=== PATIENT | male | born 1965 | race Caucasian/White ===

== ENCOUNTER 2022-03-15 09:48 | Emergency (ER) | payer BC, SELFPAY ==
[2022-03-15] VITALS (33 sets, daily range): BP systolic 93–160; BP diastolic 62–113; PULSE 51–84; RESP 10–22; TEMP 37.3; O2SAT 90–100
--- NOTE | ~2022-03-15 | CT_ITS ---
EXAMINATION: CT abdomen pelvis w con DATE: 03/15/2022 11:56 INDICATION: Abdominal pain TECHNIQUE: Computed tomography (CT) of the abdomen and pelvis was performed with 100 mL Omnipaque-350 intravenous contrast. Automated exposure control and iterative reconstruction technique were employe d. The dose-length product was 741.87 mGy-cm. COMPARISON: None FINDINGS: Mild emphysema in the lower lung zones. Bronchiectasis with mild dilation of a central bronchi and th e bilateral lower lobes with more diffuse mild bronchial wall thickening in the visualized lingula, r ight middle and bilateral lower lobes. There is likely mucous plugging the bronchus in the posterior basilar segment of the left lower lobe. Small region of mild tree-in-bud opacity in the right lower l obe consistent with age-indeterminate endobronchial spread of disease most likely infectious or infla mmatory in etiology. There is also a tiny calcified nodule in the right lower lobe consistent with ol d granulomatous disease. Heart size is normal. No pericardial or pleural effusion. Small sliding-type hiatal hernia. Mild wall thickening at the distal esophagus which could be seen with esophagitis. Dietz ggestion of some subtle liver surface nodularity raising some suspicion for but not definitive for ci rrhosis. Gallbladder, spleen, pancreas, bilateral adrenal glands and kidneys are normal. There is mod erate colonic diverticulosis with a sigmoid predominance. There is no adjacent inflammatory change t o suggest diverticulitis. There is diffuse fatty infiltration of the colonic wall relatively sparing the sigmoid colon along with a few loops of small bowel including the terminal ileum. Normal appendix . No bowel obstruction. Mild prostatomegaly. Bladder is normal. No free intraperitoneal gas or fluid. No pathologically enlarged abdominal or pelvic lymphadenopathy. Mild increased fat in the bilateral inguinal canals which could be related to body habitus or small inguinal hernias. Chronic mild anteri or wedging of L1 and few lower thoracic vertebral bodies. There are also bridging osteophytes at mult iple levels consistent with diffuse idiopathic skeletal hyperostosis (DISH). IMPRESSION: 1. Mild emphysema with bronchiectasis at the bilateral lung bases with mucous plugging in a left lowe r lobar bronchus. 2. Small region of tree-in-bud opacity with a few small centrilobular nodules in the right lower lobe consistent with age-indeterminate endobronchial spread of disease most likely either infectious or i nflammatory in etiology. 3. Mild wall thickening at the distal esophagus which could be due to esophagitis including reflux es ophagitis with small sliding-type hiatal hernia. 4. Moderate diverticulosis. 5. Fatty infiltration of the wall of the colon and several loops of small bowel including the termina l ileum which could be related to body habitus but could also be seen as sequela of chronic inflammat ion. 6. Suggestion of subtle liver surface nodularity suspicious but not definitive for cirrhosis. Reviewed, dictated and finalized at location [facility]. [facility] [employer] [employer] IMPRESSION: 1. Mild emphysema with bronchiectasis at the bilateral lung bases with mucous p lugging in a left lower lobar bronchus. 2. Small region of tree-in-bud opacity with a few small centrilobular nodules i n the right lower lobe consistent with age-indeterminate endobronchial spread o f disease most likely either infectious or inflammatory in etiology. 3. Mild wall thickening at the distal esophagus which could be due to esophagit is including reflux esophagitis with small sliding-type hiatal hernia. 4. Moderate diverticulosis. 5. Fatty infiltration of the wall of the colon and several loops of small bowel including the terminal ileum which could be related to body habi
[2022-03-15 11:02] LABS: Basophils Absolute Auto 0.1 K/mm3 (0.0-0.1); Basophils Percent Auto 0.8 % (0.2-1.2); Eosinophils Absolute Auto 0.3 K/mm3 (0-0.3); Eosinophils Percent Auto 2.7 % (0-4.4); Hematocrit 47.5 % (42.0-52.0); Hemoglobin 16.4 g/dL (14.0-18.0); Immature Granulocyte Absolute 0.09 K/mm3 (0.00-0.031); Immature Granulocyte Percent A 0.9 % (0-0.5); Lymphocytes Percent Auto 27.2 % (18.3-44.2); Mean Corpuscular HGB Conc 34.5 g/dl (32-36); Mean Corpuscular Hemoglobin 33.8 pg (26-34); Mean Corpuscular Volume 97.9 fl (80-100); Mean Platelet Volume 9.5 fl (7.4-10.4); Monocytes Absolute Auto 0.7 K/mm3 (0.1-0.6); Monocytes Percent Auto 7.2 % (2.6-8.5); Neutrophils Absolute Auto 6.1 K/mm3 (1.3-6.7); Neutrophils Percent Auto 61.2 % (45.5-73.1); Platelet Count Result 214 k/mm3 (150-375); Red Blood Count 4.85 M/mm3 (4.6-6.20); Red Cell Distribution Width 13.2 % (11.5-14.5); White Blood Count 9.9 K/mm3 (4.5-10.0)
[2022-03-15 11:14] LABS: Alanine Aminotransferase 21 U/L (6-50); Albumin Level 4.4 g/dL (3.5-5.1); Alkaline Phosphatase 67 U/L (38-126); Anion Gap 8 mmol/L (8-16); Aspartate Amino Transferase 24 U/L (17-59); Bilirubin,Total 0.7 mg/dL (0.2-1.3); Blood Urea Nitrogen 10 mg/dL (9-20); Calcium 8.7 mg/dL (8.4-10.2); Carbon Dioxide 33 mmol/L (22-30); Chloride 104 mmol/L (98-107); Estimated CRCL calculation 92 ml/min; Estimated Glomerular Filt Rate > 60; Glucose 100 mg/dL (65-110); Lipase 61 U/L (23-300); Sodium 145 mmol/L (137-145)
--- NOTE | 2022-03-15 11:27 | ED.GENADULT ---
HPI - General Adult General Chief complaint: Abdominal Pain Stated complaint: abd pain Time Seen by Provider: 03/15/22 11:20 Source: RN notes reviewed History of Present Illness HPI narrative: Patient presents emergency room from home for abdominal pain. Patient states he has been having ongoing issues with abdominal pain for the past year and a half this episode of abdominal pain became more severe today pain is located diffusely throughout the abdomen is described as aching and cramping in nature's been associated with diarrhea. He does note some mild nausea as well but denies any vomiting he denies any fevers or chills chest pain or shortness of breath states he has never had an official full work-up for his abdominal pain but has been told before in the past he has inflamed intestines Related Data Home Medications Medication Instructions Recorded Confirmed omeprazole 40 mg capsule,delayed 40 mg PO DAILY 07/13/21 07/13/21 release Allergies Allergy/AdvReac Type Severity Reaction Status Date / Time No Known Allergies Allergy Verified 03/15/22 13:24 Review of Systems Review of Systems: Gen.: Denies fevers or chills ENT: Denies congestion Respiratory: Denies shortness of breath or cough CV: Denies chest pain or shortness of breath GI: See HPI Musculoskeletal: Denies back pain or muscle pain Neuro: Denies numbness, tingling, weakness or focal weakness Skin: Denies rash Except as documented, all other systems reviewed and negative PMFSH Past Medical History Medical History Abdominal pain Acute non-recurrent maxillary sinusitis BMI 28.0-28.9,adult Colon cancer screening normal colonoscopy with Dr. Curiel on 03/11/2021 Encounter to establish care Gastro-esophageal reflux disease without esophagitis EGD with Dr. Curiel on 03/11/2021 with benign duodenal polyp and minimal chronic duodenitis GERD (gastroesophageal reflux disease) Lumbago with sciatica Lump in mouth Prostate cancer screening Tobacco abuse Social History Social History Smoking packs per day: 0.5 Smoking cigarettes per day: 10.0 Years smoked: 30 Smoking pack-years: 15.00 Smoking status: Current every day smoker Tobacco type: cigarettes Alcohol intake: current Substance use: current Substance use type: marijuana Exam Narrative: APPEARANCE: No acute distress, nontoxic, resting in bed HEENT: Normocephalic, atraumatic, OMM RESPIRATORY: No respiratory distress, clear to auscultation bilaterally with no rhonchi wheezing or rales CARDIOVASCULAR: RRR s murmur ABDOMINAL: Soft nondistended diffusely tender to palpation no rebound or guarding MUSCULOSKELETAl: Moves all extremities. No clubbing, cyanosis or edema. NEURO: Awake and alert. Following commands, speech normal, no focal deficits SKIN:: Warm, dry. Normal Color PSYCHIATRIC: Normal affect/mood Course Course Emergency Course: Patient states abdomen is feeling much better states he is ready to eat I discussed with the patient his CT results he denies having any coughing or fevers Patient states that they are feeling much better at this time. States abdominal pain has resolved. Repeat abdominal exam shows the patient's abdomen to be soft and nontender. Discussed with patient results of workup and diagnosis. Discussed need for follow-up with primary care physician, reasons to return to the emergency department in proper use of medication. Patient understands and agrees to current treatment plan Vital Signs Vital signs: Vital Signs Temperature 99.1 F 03/15/22 10:01 Pulse Rate 76 03/15/22 10:01 Respiratory Rate 20 03/15/22 10:01 Blood Pressure 160/104 H 03/15/22 10:01 Pulse Oximetry 97 03/15/22 10:01 Oxygen Delivery Room Air 03/15/22 10:01 Temperature 99.1 F 03/15/22 10:01 Pulse Rate 73 03/15/22 13:24 Respiratory Rate 20 03/15/22 13:24
[2022-03-15] MEDS: SODIUM CHLORIDE 0.9% IV 1,000 ML 999 ML IV CONT (11:37)
[2022-03-15] MEDS: ONDANSETRON INJ 4 MG/2 ML VIAL IV PUSH (11:37)
[2022-03-15] MEDS: MORPHINE SULFATE (*CRX) 4 MG/ML INJ IV PUSH (11:37)
[2022-03-15 11:49] LABS: Appearance Urine Clear (Clear); Bilirubin Urine Negative (Negative); Blood Urine Negative (Negative); Color Urine Yellow (Yellow); Glucose Urine UA Negative (Negative); Ketones Urine Negative (Negative); Leukocyte Esterase Ur Negative LEU/UL (Negative); Nitrate Urine Negative (Negative); Protein Urine Trace mg/dL (Negative); Specific Grav Ur 1.025 (1.001-1.035); Urobilinogen Urine 0.2 mg/dL (<2.0); pH Urine 5.5 (5.0-9.0)
[2022-03-15 12:55] LABS: Add Urine Microscopic? NO
[2022-03-15] MEDS: ALBUTEROL SULFATE NEB 2.5 MG/3 ML INH 5 MG INHALATION (13:01)
[2022-03-15] MEDS: IPRATROPIUM BR 0.02% INH SOLN 0.5 MG/2.5 ML VIAL INHALATION (13:02)
== END 2022-03-15 15:39 | disposition home or self-care (01) ==
PROVIDERS: Emergency Provider Emergency Medicine; PCP Nurse Practitioner Family
DX: J18.9 Pneumonia, unspecified organism (principal); R10.84 Generalized abdominal pain; K21.9 Gastro-esophageal reflux disease without esophagitis; F17.210 Nicotine dependence, cigarettes, uncomplicated; J43.9 Emphysema, unspecified; R91.8 Other nonspecific abnormal finding of lung field; R93.3 Abnormal findings on diagnostic imaging of other parts of digestive tract; K57.90 Diverticulosis of intestine, part unspecified, without perforation or abscess without bleeding; R93.2 Abnormal findings on diagnostic imaging of liver and biliary tract
CPT/HCPCS: 36415; 74177; 80053; 81003; 83690; 85025; 94640; 96361; 96374; 96375; 99284; J2270; J2405; J7030; Q9967

== ENCOUNTER 2022-05-15 09:37 | Emergency (ER) | payer BC, SELFPAY ==
[2022-05-15 09:52] VITALS: BP 123/71; PULSE 59; RESP 18; TEMP 36.3; O2SAT 97
--- NOTE | 2022-05-15 10:13 | ED.URI ---
HPI - URI/Sore Throat General Chief Complaint: Upper Respiratory Infection Stated Complaint: nasal drainage Time Seen by Provider: 05/15/22 10:14 Source: patient and RN notes reviewed Mode of arrival: ambulatory Limitations: no limitations History of Present Illness HPI Narrative: 56-year-old male presented for complaint of cough and sinus congestion over the last 2 weeks. Reports sinus pressure and ear pressure with 'hearing noises' when turning head. He endorses white, yellow or green sputum production. Endorses sob occasionally with exertion. He denies cp, palpitations, wheezing, lethargy, dizziness, nausea, vomiting, diarrhea, fevers or chills. Takes Flonase and zyrtec. Denies sick contacts. He quit smoking 05/02/2022, up to 2 ppd x40 years. MD elicited complaint: cough Related Data Home Medications Medication Instructions Recorded Confirmed citalopram 20 mg tablet 20 mg PO HS 05/15/22 05/15/22 ergocalciferol (vitamin D2) 1,250 50,000 unit PO WEEKLY 05/15/22 05/15/22 mcg (50,000 unit) capsule hyoscyamine sulfate 0.375 mg 0.375 mg PO DAILY 05/15/22 05/15/22 tablet,extended release,12 hr magnesium oxide 400 mg PO DAILY 05/15/22 05/15/22 omeprazole 40 mg capsule,delayed 40 mg PO DAILY 05/15/22 05/15/22 release varenicline 0.5 mg tablet 0.5 mg PO DAILY 05/15/22 05/15/22 Allergies Allergy/AdvReac Type Severity Reaction Status Date / Time No Known Allergies Allergy Verified 05/15/22 09:48 Review of Systems Review of Systems: Per HPI [facility] Past Medical History Medical History Abdominal pain Acute non-recurrent maxillary sinusitis BMI 28.0-28.9,adult Colon cancer screening normal colonoscopy with Dr. Curiel on 03/11/2021 Encounter to establish care Gastro-esophageal reflux disease without esophagitis EGD with Dr. Curiel on 03/11/2021 with benign duodenal polyp and minimal chronic duodenitis GERD (gastroesophageal reflux disease) Lumbago with sciatica Lump in mouth Prostate cancer screening Tobacco abuse Social History Social History Smoking packs per day: 0.5 Smoking cigarettes per day: 10.0 Years smoked: 30 Smoking pack-years: 15.00 Smoking status: Current every day smoker Tobacco type: cigarettes Alcohol intake: current Substance use: current Substance use type: marijuana Exam Narrative: GENERAL: mildly Ill-appearing, nontoxic EYES: PERRLA, conjunctivae clear ENT: Mucous membranes moist. TM pearly camilo with dull light reflex bilaterally; no tragal tenderness. Oropharynx without lesions or exudate, CHEST: lungs diminished with faint scattered wheezing throughout. No respiratory distress, speaks in full sentences. HEART: Regular rate and rhythm. No murmur heard. SKIN: Warm, dry, no rash. NEURO: Alert and oriented x3. PSYCH: Normal mood and affect Course Course Emergency Course: Patient is aware of diagnosis, understands and agrees to treatment plan. Anticipatory guidance given. Patient agrees to follow-up as directed and is aware of reasons to seek care at the emergency department. Portions of this record may have been created with voice recognition software Level of Care: Express Care Visit Vital Signs Vital signs: Vital Signs Temperature 97.3 F L 05/15/22 09:52 Pulse Rate 59 L 05/15/22 09:52 Respiratory Rate 18 05/15/22 09:52 Blood Pressure 123/71 05/15/22 09:52 Pulse Oximetry 97 05/15/22 09:52 Oxygen Delivery Room Air 05/15/22 09:52 Temperature 97.3 F L 05/15/22 09:52 Pulse Rate 59 L 05/15/22 09:52 Respiratory Rate 18 05/15/22 09:52 Blood Pressure 123/71 05/15/22 09:52 Pulse Oximetry 97 05/15/22 09:52 Oxygen Delivery Room Air 05/15/22 09:52 reviewed MDM - URI/Sore Throat MDM Narrative Medical decision making narrative: Advised supportive measures and signs/symptoms to go to the ER. Pt is ap
== END 2022-05-15 10:25 | disposition home or self-care (01) ==
PROVIDERS: Emergency Provider Nurse Practitioner Family; PCP Family Medicine
DX: J06.9 Acute upper respiratory infection, unspecified (principal); K21.9 Gastro-esophageal reflux disease without esophagitis; F17.210 Nicotine dependence, cigarettes, uncomplicated
CPT/HCPCS: 99213; G0463

== ENCOUNTER 2022-06-05 08:28 | Emergency (ER) | payer BC, SELFPAY ==
[2022-06-05 08:44] VITALS: BP 128/71; PULSE 72; RESP 18; TEMP 37.2; O2SAT 98
--- NOTE | 2022-06-05 08:46 | ED.GENADULT ---
HPI - General Adult General Chief complaint: Animal Bite Stated complaint: dog bite Time Seen by Provider: 06/05/22 08:46 Source: patient Mode of arrival: ambulatory Limitations: no limitations History of Present Illness HPI narrative: 56-year-old male patient presents to the [facility] with complaints of a dog bite to the left hand. Patient states he was playing with his Great [place] yesterday and was pulling around by his mouth and the dog accidentally bit him on the left-hand in the web between the index and thumb. Patient states that the left hand is his dominant hand. Patient states he is up-to-date on tetanus and just received a tetanus shot about 2 months ago by his primary doctor. Related Data Home Medications Medication Instructions Recorded Confirmed ergocalciferol (vitamin D2) 1,250 50,000 unit PO WEEKLY 05/15/22 05/15/22 mcg (50,000 unit) capsule hyoscyamine sulfate 0.375 mg 0.375 mg PO DAILY 05/15/22 05/15/22 tablet,extended release,12 hr magnesium oxide 400 mg PO DAILY 05/15/22 05/15/22 omeprazole 40 mg capsule,delayed 40 mg PO DAILY 05/15/22 05/15/22 release varenicline 0.5 mg tablet 0.5 mg PO DAILY 05/15/22 05/15/22 Allergies Allergy/AdvReac Type Severity Reaction Status Date / Time No Known Allergies Allergy Verified 05/15/22 09:48 Review of Systems Review of Systems: CONSTITUTIONAL: Denies fever, chills, or sweats. EYES: Denies visual changes, redness, or discharge. ENT: Denies rhinorrhea, congestion, sore throat, or otalgia. CARDIOVASCULAR: Denies chest pain, palpitations, or edema. RESPIRATORY: Denies cough or dyspnea. GASTROINTESTINAL: Denies abdominal pain, nausea, vomiting, or diarrhea. GENITOURINARY: Denies dysuria or hematuria. SKIN: Denies rash or itching. Positive dog bite to left hand MUSCULOSKELETAL: Denies back pain, joint pain, or myalgia. NEUROLOGIC: Denies headache, numbness, or weakness. PSYCHIATRIC: Denies anxiety or depression. [facility] Past Medical History Medical History Abdominal pain Acute non-recurrent maxillary sinusitis BMI 28.0-28.9,adult Colon cancer screening normal colonoscopy with Dr. Curiel on 03/11/2021 Encounter to establish care Gastro-esophageal reflux disease without esophagitis EGD with Dr. Curiel on 03/11/2021 with benign duodenal polyp and minimal chronic duodenitis GERD (gastroesophageal reflux disease) Lumbago with sciatica Lump in mouth Prostate cancer screening Tobacco abuse Social History Social History Smoking packs per day: 0.5 Smoking cigarettes per day: 10.0 Years smoked: 30 Smoking pack-years: 15.00 Smoking status: Current every day smoker Tobacco type: cigarettes Alcohol intake: current Substance use: current Substance use type: marijuana Exam Narrative: GENERAL: Well-appearing, well-nourished, and in no acute distress. HEAD: Normocephalic, atraumatic. EYES: PERRLA and EOMI. ENT: Nares clear, no rhinorrhea or epistaxis. Mucous membranes moist. NECK: Supple. No lymphadenopathy CHEST: Clear to auscultation. No respiratory distress. HEART: Regular rate and rhythm. No murmur heard. Normal peripheral pulses. ABDOMEN: Soft, nontender, nondistended, normal active bowel sounds. EXTREMITIES: Normal range of motion. No edema. SKIN: Warm, dry, no rash. patient has approximately 2 cm circular open wound to the web between left thumb and left index finger. No active bleeding noted. NEURO: No focal deficits. Alert and oriented x3. Course Course Level of Care: Express Care Visit Vital Signs Vital signs: Vital Signs Temperature 37.2 C 06/05/22 08:44 Pulse Rate 72 06/05/22 08:44 Respiratory Rate 18 06/05/22 08:44 Blood Pressure 128/71 06/05/22 08:44 Pulse Oximetry 98 06/05/22 08:44 Oxygen Delivery Room Air 06/05/22 08:44 Temperature 37.2 C 06/05/22 08:44 Pulse Rate 72 02
== END 2022-06-05 09:18 | disposition home or self-care (01) ==
PROVIDERS: Emergency Provider Nurse Practitioner Family; PCP Family Medicine
DX: S61.452A Open bite of left hand, initial encounter (principal); F17.210 Nicotine dependence, cigarettes, uncomplicated; W54.0XXA Bitten by dog, initial encounter
CPT/HCPCS: 99213; G0463

== ENCOUNTER 2023-02-19 08:56 | Emergency (ER) | payer BC, SELFPAY ==
[2023-02-19 09:04] VITALS: BP 135/100; PULSE 88; RESP 20; TEMP 36.6; O2SAT 98
--- NOTE | 2023-02-19 09:04 | ED.URI ---
HPI - URI/Sore Throat General Chief Complaint: Upper Respiratory Infection Stated Complaint: Cough,Congestion,Rash Time Seen by Provider: 02/19/23 09:05 Source: patient Mode of arrival: ambulatory Limitations: no limitations History of Present Illness HPI Narrative: 57 year old male presented for complaint of sinus congestion and drainage, cough, onset 4 days. He endorses a red itchy rash this morning. Rash is on the mid torso, low abd/back, and biceps. Denies lip, tongue, or throat swelling, shortness of breath or wheezing. Denies changes to soap, detergent, lotion, or any other exposures. No one else in the house or any contacts with similar symptoms. Not taking anything for symptoms. Denies sick contacts. Smokes 1ppd. Related Data Home Medications Medication Instructions Recorded Confirmed ergocalciferol (vitamin D2) 1,250 50,000 unit PO WEEKLY 05/15/22 02/19/23 mcg (50,000 unit) capsule hyoscyamine sulfate 0.375 mg 0.375 mg PO DAILY 05/15/22 02/19/23 tablet,extended release,12 hr magnesium oxide 400 mg PO DAILY 05/15/22 02/19/23 omeprazole 40 mg capsule,delayed 40 mg PO DAILY 05/15/22 02/19/23 release varenicline 0.5 mg tablet 0.5 mg PO DAILY 05/15/22 02/19/23 Allergies Allergy/AdvReac Type Severity Reaction Status Date / Time No Known Allergies Allergy Verified 02/19/23 09:02 Review of Systems Review of Systems: CONSTITUTIONAL: Denies body aches, fever, chills, or sweats. EYES: Denies visual changes, redness, or discharge. ENT: Reports rhinorrhea, congestion, sore throat, denies otalgia. CARDIOVASCULAR: Denies chest pain, palpitations, or edema. RESPIRATORY: Reports cough, denies sob, wheezing. GASTROINTESTINAL: Denies abdominal pain, nausea, vomiting, or diarrhea. GENITOURINARY: Denies dysuria or hematuria. SKIN: reports rash, itching MUSCULOSKELETAL: Denies back pain, joint pain, or myalgia. NEUROLOGIC: Denies headache, numbness, tingling, or weakness. All systems reviewed & are unremarkable except as noted in HPI and below PMFSH Past Medical History Medical History Abdominal pain Acute non-recurrent maxillary sinusitis BMI 28.0-28.9,adult Colon cancer screening normal colonoscopy with Dr. Curiel on 03/11/2021 Encounter to establish care Gastro-esophageal reflux disease without esophagitis EGD with Dr. Curiel on 03/11/2021 with benign duodenal polyp and minimal chronic duodenitis GERD (gastroesophageal reflux disease) Lumbago with sciatica Lump in mouth Prostate cancer screening Tobacco abuse Social History Social History Smoking packs per day: 0.5 Smoking cigarettes per day: 10.0 Years smoked: 30 Smoking pack-years: 15.00 Smoking status: Current every day smoker Tobacco type: cigarettes Alcohol intake: current Substance use: current Substance use type: marijuana Comments At time of signature, I have reviewed and agree with nursing past medical, surgical, social and family history unless otherwise noted. Please see nursing chart for further information. There is no relevant family history pertinent to the presenting complaint Exam Narrative: GENERAL: Well-appearing, in no acute distress. EYES: EOMI. No redness or drainage. Conjunctivae normal. ENT: Mucous membranes pink and moist. No rhinorrhea. TMs normal bilaterally. Throat normal. Uvula midline. NECK: Normal AROM. Supple. CHEST: No respiratory distress. Faint Wheezing to bases. HEART: Regular rate and rhythm. No murmur appreciated. ABDOMEN: Soft, nontender, nondistended, normal active bowel sounds. EXTREMITIES: Normal range of motion. No edema. SKIN: Warm, dry, no rash. Capillary refill normal. Normal skin turgor. NEURO: Alert and oriented x3. Gait steady. Course Course Emergency Course: Patient is aware of diagnosis, understands and agrees to treatment plan. Anticipatory gu
== END 2023-02-19 09:34 | disposition home or self-care (01) ==
PROVIDERS: Emergency Provider Nurse Practitioner Family
DX: B34.9 Viral infection, unspecified (principal); F17.210 Nicotine dependence, cigarettes, uncomplicated; K21.9 Gastro-esophageal reflux disease without esophagitis
CPT/HCPCS: 87081; 87880; 99213; G0463

== ENCOUNTER 2023-02-24 09:52 | Emergency (ER) | payer BC, SELFPAY ==
--- NOTE | ~2023-02-24 | XR_ITS ---
EXAMINATION: XR chest 2V 02/24/2023 10:15 INDICATION: Anterior wall chest pain PROCEDURE: 2 view chest COMPARISON: No prior studies for comparison. FINDINGS: The lungs are clear. The lungs are hyperinflated which is consistent with, but not diagnost ic of chronic obstructive pulmonary disease. The cardiomediastinal silhouette is within normal limit s. There are no pleural effusions. There is no pneumothorax suspected. IMPRESSION: 1: NO ACUTE CARDIOPULMONARY DISEASE. Reviewed, dictated and finalized at location L.
--- NOTE | 2023-02-24 09:54 | ECG_ITS ---
Measurements Intervals [place] Rate: 75 P: 64 [place]: 140 QRS: 82 QRSD: 102 T: 74 QT: 379 QTc: 425 Interpretive Statements SINUS RHYTHM NORMAL ELECTROCARDIOGRAM NO PREVIOUS ECG AVAILABLE FOR COMPARISON Electronically Signed On 02-25-2023 7:24:55 CDT by Cy Andino M.D.
[2023-02-24 09:55] VITALS: BP 146/109; PULSE 77; RESP 18; O2SAT 95
[2023-02-24 10:01] VITALS: O2SAT 94
[2023-02-24 10:10] LABS: Basophils Percent Auto 0.4 % (0.2-1.2); Eosinophils Percent Auto 0.2 % (0-4.4); Hematocrit 48.4 % (42.0-52.0); Hemoglobin 16.4 g/dL (14.0-18.0); Immature Granulocyte Absolute 0.08 K/mm3 (0.00-0.031); Immature Granulocyte Percent A 0.8 % (0-0.5); Lymphocytes Absolute Auto 1.74 K/mm3 (0.9-3.2); Lymphocytes Percent Auto 17.2 % (18.3-44.2); Mean Corpuscular HGB Conc 33.9 g/dl (32-36); Mean Corpuscular Hemoglobin 32.7 pg (26-34); Mean Corpuscular Volume 96.4 fl (80-100); Mean Platelet Volume 9.9 fl (7.4-10.4); Monocytes Absolute Auto 0.7 K/mm3 (0.1-0.6); Monocytes Percent Auto 6.5 % (2.6-8.5); Neutrophils Absolute Auto 7.6 K/mm3 (1.3-6.7); Neutrophils Percent Auto 74.9 % (45.5-73.1); Platelet Count Result 256 k/mm3 (150-375); Red Blood Count 5.02 M/mm3 (4.6-6.20); White Blood Count 10.1 K/mm3 (4.5-10.0)
--- NOTE | 2023-02-24 10:12 | ED.CHESTPAIN ---
HPI - Chest Pain General Chief Complaint: Chest Pain <Luanne Alexandra PA-C - Last Filed: 02/24/23 14:07> Stated Complaint: dyspnea <Luanne Alexandra PA-C - Last Filed: 02/24/23 14:07> Time Seen by Provider: 02/24/23 09:56 <Luanne Alexandra PA-C - Last Filed: 02/24/23 14:07> Source: patient <MARIA Coleman Last Filed: 02/24/23 14:07> Mode of arrival: ambulatory <MARIA Coleman Last Filed: 02/24/23 14:07> Limitations: no limitations <MARIA Coleman Last Filed: 02/24/23 14:07> History of Present Illness HPI narrative: This is a 57 year old male that presents to the ER for shortness of breath. Ongoing over the last week. Associated with cough and congestion. Reports he was seen at urgent care and given a Medrol Dosepak. He is taking this without relief. Continues to have shortness of breath and wheezing. He has also been using an inhaler without relief. Reports some pleuritic chest pain. Denies fevers or lower extremity edema. <Luanne Alexandra PA-C - Last Filed: 02/24/23 14:07> Related Data Home Medications: Home Medications Medication Instructions Recorded Confirmed ergocalciferol (vitamin D2) 1,250 50,000 unit PO WEEKLY 05/15/22 02/19/23 mcg (50,000 unit) capsule hyoscyamine sulfate 0.375 mg 0.375 mg PO DAILY 05/15/22 02/19/23 tablet,extended release,12 hr magnesium oxide 400 mg PO DAILY 05/15/22 02/19/23 omeprazole 40 mg capsule,delayed 40 mg PO DAILY 05/15/22 02/19/23 release varenicline 0.5 mg tablet 0.5 mg PO DAILY 05/15/22 02/19/23 <MARIA Coleman Last Filed: 02/24/23 14:07> Allergies/Adverse Reactions: Allergies Allergy/AdvReac Type Severity Reaction Status Date / Time No Known Allergies Allergy Verified 02/19/23 09:02 <Luanne Alexandra PA-C - Last Filed: 02/24/23 14:07> Review of Systems Review of Systems: CONSTITUTIONAL: Denies fever CARDIOVASCULAR: Reports chest pain. Denies edema. RESPIRATORY: Reports cough and dyspnea. <Luanne Alexandra PA-C - Last Filed: 02/24/23 14:07> All systems reviewed & are unremarkable except as noted in HPI and below <Luanne Alexandra PA-C - Last Filed: 02/24/23 14:07> PMFSH Past Medical History Medical History: Medical History Abdominal pain Acute non-recurrent maxillary sinusitis BMI 28.0-28.9,adult Colon cancer screening normal colonoscopy with Dr. Curiel on 03/11/2021 Encounter to establish care Gastro-esophageal reflux disease without esophagitis EGD with Dr. Curiel on 03/11/2021 with benign duodenal polyp and minimal chronic duodenitis GERD (gastroesophageal reflux disease) Lumbago with sciatica Lump in mouth Prostate cancer screening Tobacco abuse <Luanne Alexandra PA-C - Last Filed: 02/24/23 14:07> Social History Social History: Social History Smoking packs per day: 0.5 Smoking cigarettes per day: 10.0 Years smoked: 30 Smoking pack-years: 15.00 Smoking status: Current every day smoker Tobacco type: cigarettes Alcohol intake: current Substance use: current Substance use type: marijuana <Luanne Alexandra PA-C - Last Filed: 02/24/23 14:07> Exam Narrative: GENERAL: Well-appearing, well-nourished, and in no acute distress. HEAD: Normocephalic, atraumatic. EYES: PERRLA and EOMI. ENT: Nares clear, no rhinorrhea or epistaxis. Mucous membranes moist. Oropharynx without tonsillar hypertrophy exudate or other lesions. NECK: Supple. No adenopathy or masses. CHEST: No respiratory distress. Diffuse expiratory wheezing. No rales or rhonchi HEART: Regular rate and rhythm. No murmur heard. Normal peripheral pulses. EXTREMITIES: Normal range of motion. No edema. SKIN: Warm, dry, no rash. NEURO: No focal deficits. Alert and oriented x3. PSYCH: Normal mood and affect <Luanne Alexandra PA-C - Last Filed: 02/24/23
[2023-02-24 10:20] LABS: Alanine Aminotransferase 66 U/L (6-50); Albumin Level 4.6 g/dL (3.5-5.1); Alkaline Phosphatase 70 U/L (38-126); Anion Gap 6 mmol/L (8-16); Aspartate Amino Transferase 41 U/L (17-59); Bilirubin,Total 0.8 mg/dL (0.2-1.3); Blood Urea Nitrogen 16 mg/dL (9-20); Calcium 9.5 mg/dL (8.4-10.2); Carbon Dioxide 32 mmol/L (22-30); Chloride 100 mmol/L (98-107); Estimated CRCL calculation 79 ml/min; Estimated Glomerular Filt Rate > 60; Glucose 100 mg/dL (65-110); Lipase 239 U/L (23-300); Potassium 4.1 mmol/L (3.4-5.0); Sodium 138 mmol/L (137-145)
[2023-02-24 10:23] LABS: INR 0.9; Partial Thromboplastin Time 25.1 SECONDS (22.3-36.8); Prothrombin Time 12.5 Seconds (11.1-14.7)
[2023-02-24 10:31] LABS: Troponin I < 0.012 ng/mL (0.000-0.034)
[2023-02-24 10:34] VITALS: PULSE 67; RESP 17
[2023-02-24] MEDS: IPRATROPIUM BR 0.02% INH SOLN 0.5 MG/2.5 ML VIAL INHALATION (10:34)
[2023-02-24] MEDS: ALBUTEROL SULFATE NEB 2.5 MG/3 ML INH INHALATION (10:34)
[2023-02-24 10:47] VITALS: PULSE 66; RESP 17
[2023-02-24] MEDS: KETOROLAC 15 MG/ML VIAL (*BKC) IV PUSH (11:11)
[2023-02-24] MEDS: methylPREDNISolone SOD SUCC 125 MG VIAL IV PUSH (11:11)
[2023-02-24 11:21] LABS: NT Pro B Type Natriuretic Pept 132 pg/mL (19.9-100)
[2023-02-24 11:24] LABS: Influenza A QL RT-PCR Negative (Negative); Influenza B QL RT-PCR Negative (Negative); SARS-CoV-2 RNA PCR Negative (Negative)
[2023-02-24 12:06] VITALS: PULSE 62; RESP 18
[2023-02-24] MEDS: ALBUTEROL SULFATE NEB 2.5 MG/3 ML INH 15 MG INHALATION (12:06)
[2023-02-24] MEDS: IPRATROPIUM BR 0.02% INH SOLN 0.5 MG/2.5 ML VIAL 1.5 MG INHALATION (12:06)
[2023-02-24 13:29] VITALS: PULSE 76; RESP 24
[2023-02-24 13:32] LABS: Troponin I < 0.012 ng/mL (0.000-0.034)
== END 2023-02-24 14:10 | disposition home or self-care (01) ==
PROVIDERS: Emergency Medicine; Emergency Provider Physician Assistant
DX: R06.2 Wheezing (principal); R07.81 Pleurodynia; Z20.822 Contact with and (suspected) exposure to COVID-19; K21.9 Gastro-esophageal reflux disease without esophagitis; F17.210 Nicotine dependence, cigarettes, uncomplicated
CPT/HCPCS: 36415; 71046; 80053; 83690; 83880; 84484; 85025; 85610; 85730; 87636; 93005; 94640; 94664; 96374; 96375; 99284; J1885; J2930

== ENCOUNTER 2023-02-27 13:32 | Emergency (ER) | payer BC, SELFPAY ==
[2023-02-27] VITALS (19 sets, daily range): BP systolic 115–147; BP diastolic 62–80; PULSE 53–80; RESP 12–20; TEMP 36.5; O2SAT 89–99
--- NOTE | ~2023-02-27 | XR_ITS ---
EXAMINATION: XR chest 2V Exam Date/Time: 02/27/2023 14:40 CDT HISTORY: SOB, CHEST TIGHTNESS, WHEEZING X 2 WEEKS Comparison: 02/18/2023. RESULT: Lines, tubes, and devices: None. Lungs and pleura: Clear. Cardiomediastinal silhouette: Stable. Other: No acute osseous or upper abdominal finding. IMPRESSION: No acute cardiopulmonary process. Reviewed, dictated and finalized at location K.
--- NOTE | ~2023-02-27 | CT_ITS ---
EXAMINATION: CTA chest PE protocol DATE: 02/27/2023 17:20 INDICATION: Dyspnea TECHNIQUE: Computed tomography angiography (CTA) of the chest was performed with 100 mL Omnipaque-350 intravenous contrast timed to evaluate the pulmonary arteries. Coronal maximum intensity projection 3D-reconstructions were created by the technologist. The dose-length product (DLP) was 558.48 mGy-cm. Automated exposure control and iterative reconstruction technique were employed. COMPARISON: X-ray chest same date; CT abdomen pelvis 03/15/2022. FINDINGS: Lung parenchyma and airways: Mild centrilobular emphysematous change. Bronchiectasis. Minimal scatter ed airway debris in lower lobe bronchi. Bronchial wall thickening. Pleura: Unremarkable. Thoracic inlet, axillae and chest wall: Unremarkable. Thoracic aorta: Normal. Mediastinum: Normal. Heart and pericardium: Normal. Coronary artery calcifications: Absent. Upper abdomen: No significant finding. Bones: No acute osseous finding. Pulmonary arteries: Study quality: Adequate. No pulmonary emboli detected. IMPRESSION: No CT evidence of acute pulmonary embolus. Emphysema, bronchiectasis, and mild mucous plugging. Reviewed, dictated and finalized at location K.
--- NOTE | 2023-02-27 13:37 | ECG_ITS ---
Measurements Intervals [place] Rate: 72 P: 52 PA: 127 QRS: 76 QRSD: 104 T: 71 QT: 400 QTc: 439 Interpretive Statements SINUS RHYTHM NONSPECIFIC ST ABNORMALITY BORDERLINE ECG COMPARED TO ECG 02/24/2023 09:56:55 NO SIGNIFICANT CHANGES Electronically Signed On 02-27-2023 13:57:48 CDT by Willard Randolph M.D.
[2023-02-27 13:54] LABS: Basophils Percent Auto 0.4 % (0.2-1.2); Eosinophils Percent Auto 0.1 % (0-4.4); Hematocrit 45.7 % (42.0-52.0); Hemoglobin 15.4 g/dL (14.0-18.0); Immature Granulocyte Absolute 0.18 K/mm3 (0.00-0.031); Immature Granulocyte Percent A 1.6 % (0-0.5); Lymphocytes Absolute Auto 1.09 K/mm3 (0.9-3.2); Lymphocytes Percent Auto 9.7 % (18.3-44.2); Mean Corpuscular HGB Conc 33.7 g/dl (32-36); Mean Corpuscular Hemoglobin 32.6 pg (26-34); Mean Corpuscular Volume 96.8 fl (80-100); Mean Platelet Volume 9.8 fl (7.4-10.4); Monocytes Absolute Auto 0.4 K/mm3 (0.1-0.6); Monocytes Percent Auto 3.6 % (2.6-8.5); Neutrophils Absolute Auto 9.5 K/mm3 (1.3-6.7); Neutrophils Percent Auto 84.6 % (45.5-73.1); Platelet Count Result 273 k/mm3 (150-375); Red Blood Count 4.72 M/mm3 (4.6-6.20); Red Cell Distribution Width 13.2 % (11.5-14.5); White Blood Count 11.2 K/mm3 (4.5-10.0)
[2023-02-27 14:04] LABS: Alanine Aminotransferase 63 U/L (6-50); Albumin Level 4.2 g/dL (3.5-5.1); Alkaline Phosphatase 70 U/L (38-126); Anion Gap 9 mmol/L (8-16); Aspartate Amino Transferase 46 U/L (17-59); Bilirubin,Total 0.7 mg/dL (0.2-1.3); Blood Urea Nitrogen 15 mg/dL (9-20); Carbon Dioxide 25 mmol/L (22-30); Chloride 103 mmol/L (98-107); Estimated CRCL calculation 79 ml/min; Estimated Glomerular Filt Rate > 60; Glucose 151 mg/dL (65-110); Potassium 3.7 mmol/L (3.4-5.0); Sodium 137 mmol/L (137-145)
[2023-02-27] MEDS: ALBUTEROL SULFATE NEB 2.5 MG/3 ML INH INHALATION (15:14)
[2023-02-27] MEDS: IPRATROPIUM BR 0.02% INH SOLN 0.5 MG/2.5 ML VIAL INHALATION (15:14)
[2023-02-27 15:20] LABS: Fractional Inspired Oxygen 48 %; PCO2 VBG 31.2 mmHg (42.0-48.0); PO2 VBG 65.4 mmHg (35.0-45.0); pH VBG 7.522 (7.300-7.400)
[2023-02-27 15:21] LABS: Device SIMPLE MASK
--- NOTE | 2023-02-27 15:28 | ED.SOB ---
HPI - SOB/Dyspnea General Chief Complaint: Shortness of Breath/Dyspnea Stated Complaint: SHORT OF BREATH Time Seen by Provider: 02/27/23 14:46 History of Present Illness HPI Narrative: This is a 57-year-old male, with history of GERD, who returns to the emergency department complaining of continued shortness of breath. The patient was seen here 3 days ago. At that time the patient had pleuritic chest pain and wheezing. Admission was advised, though he wished to be discharged. He was discharged home with prednisone and albuterol nebs. The patient states he was not able to fill the albuterol prescription until yesterday. She used nebulizers this morning without improvement. He last took steroid this morning. Related Data Home Medications Medication Instructions Recorded Confirmed ergocalciferol (vitamin D2) 1,250 50,000 unit PO WEEKLY 05/15/22 02/19/23 mcg (50,000 unit) capsule hyoscyamine sulfate 0.375 mg 0.375 mg PO DAILY 05/15/22 02/19/23 tablet,extended release,12 hr magnesium oxide 400 mg PO DAILY 05/15/22 02/19/23 omeprazole 40 mg capsule,delayed 40 mg PO DAILY 05/15/22 02/19/23 release varenicline 0.5 mg tablet 0.5 mg PO DAILY 05/15/22 02/19/23 Allergies Allergy/AdvReac Type Severity Reaction Status Date / Time No Known Allergies Allergy Verified 02/19/23 09:02 Review of Systems Review of Systems: CONSTITUTIONAL: Denies fever, chills, or sweats. CARDIOVASCULAR: Sore-like chest pain with deep breathing denies palpitations, or edema. RESPIRATORY: Cough productive of white, nonbloody, dyspnea GASTROINTESTINAL: Denies abdominal pain, nausea, vomiting, or diarrhea. GENITOURINARY: Denies dysuria or hematuria. SKIN: Denies rash or itching. MUSCULOSKELETAL: Denies back pain, joint pain, or myalgia. NEUROLOGIC: Denies headache, numbness, dizziness, or weakness. PSYCHIATRIC: Denies anxiety or depression. [facility] Past Medical History Medical History Abdominal pain Acute non-recurrent maxillary sinusitis BMI 28.0-28.9,adult Colon cancer screening normal colonoscopy with Dr. Curiel on 03/11/2021 Encounter to establish care Gastro-esophageal reflux disease without esophagitis EGD with Dr. Curiel on 03/11/2021 with benign duodenal polyp and minimal chronic duodenitis GERD (gastroesophageal reflux disease) Lumbago with sciatica Lump in mouth Prostate cancer screening Tobacco abuse Social History Social History Smoking packs per day: 0.5 Smoking cigarettes per day: 10.0 Years smoked: 30 Smoking pack-years: 15.00 Smoking status: Current every day smoker Tobacco type: cigarettes Alcohol intake: current Substance use: current Substance use type: marijuana Exam Narrative: GENERAL: Well-developed, well-nourished, and in no acute distress. HEAD: Normocephalic, atraumatic. EYES: PERRLA and EOMI. ENT: Nares clear, no rhinorrhea or epistaxis. Mucous membranes moist. Oropharynx without tonsillar hypertrophy exudate or other lesions. CHEST: Bilateral expiratory wheeze with good aeration. No respiratory distress. No rales or rhonchi HEART: Regular rate and rhythm. No murmur heard. Normal peripheral pulses. ABDOMEN: Soft, nontender, nondistended, normal active bowel sounds. EXTREMITIES: Normal range of motion. No edema. SKIN: Warm, dry, no rash. NEURO: Alert and oriented x3. Moving all 4 limbs purposefully. PSYCH: Normal mood and affect. Course Course Emergency Course: 17:40 -CBC demonstrates slightly elevated white blood cell count of 11.2, this is increased from 10.63 days ago. This may be related to use of steroids. VBG demonstrates pH of 7.52 with PCO2 of 31, consistent with hyperventilation. It is not concerning for CO2 retention. Chemistries demonstrate elevated blood glucose of 151 but is otherwise unremarkable. Troponin negative. Chest x-ray not concerning
[2023-02-27] MEDS: MAGNESIUM SULF 2 GM/WATER 50ML 2 GM/50 ML BAG IVPB (15:33)
[2023-02-27 15:49] LABS: Troponin I < 0.012 ng/mL (0.000-0.034)
[2023-02-27] MEDS: ALBUTEROL SULFATE NEB 2.5 MG/3 ML INH 10 MG INHALATION (16:45)
[2023-02-27] MEDS: AZITHROMYCIN 250 MG TABLET 500 MG PO (18:15)
== END 2023-02-27 18:33 | disposition home or self-care (01) ==
PROVIDERS: Emergency Provider Preventive Medicine Aerospace Medicine
DX: J40 Bronchitis, not specified as acute or chronic (principal); R06.2 Wheezing; F17.210 Nicotine dependence, cigarettes, uncomplicated
CPT/HCPCS: 36415; 71046; 71275; 80053; 82803; 84484; 85025; 93005; 94640; 96365; 96366; 99284; A9270; J3475; Q9967

== ENCOUNTER 2023-07-04 08:50 | Emergency (ER) | payer OTHER, SELFPAY ==
--- NOTE | ~2023-07-04 | US_ITS ---
EXAMINATION: US right upper quadrant DATE: 07/04/2023 10:54 INDICATION: Right upper quadrant pain TECHNIQUE: Multiple grayscale and Doppler ultrasound images of the abdomen were obtained. COMPARISON: CT, 03/15/2022 FINDINGS: The head and body of the pancreas are normal. The pancreatic tail is obscured by bowel gas. The liver demonstrates increased echogenicity, heterogenous echotexture, and decreased through trans mission. No surface nodularity. Normal hepatopetal flow in the main portal vein. The gallbladder is d ecompressed. There are echogenic foci of the gallbladder wall without evidence of bladder wall thicke lesley or pericholecystic fluid. The normal common bile duct measures 3 mm. There was no sonographic Mu rphy sign. IMPRESSION: 1. Echogenic foci in the gallbladder wall which could reflect cholesterolosis. No sonographic correla te for right upper quadrant pain. 2. Diffuse hepatic steatosis. Reviewed, dictated and finalized at location B. TS ADMINISTRATOR IMPRESSION: 1. Echogenic foci in the gallbladder wall which could reflect cholesterolosis. No sonographic correlate for right upper quadrant pain. 2. Diffuse hepatic steatosis.
[2023-07-04 09:01] VITALS: BP 156/88; PULSE 73; RESP 16; TEMP 36.3; O2SAT 96
--- NOTE | 2023-07-04 09:08 | ECG_ITS ---
Measurements Intervals [place] Rate: 72 P: 58 ID: 132 QRS: 80 QRSD: 102 T: 74 QT: 393 QTc: 433 Interpretive Statements SINUS RHYTHM BASELINE ARTIFACT- I, II, III, AVR, AVL NORMAL ECG COMPARED TO ECG 02/27/2023 13:42:10 NO SIGNIFICANT CHANGES Electronically Signed On 07-04-2023 9:20:30 AUTOMATIC PRESSER by Tony Simental D.O.
--- NOTE | 2023-07-04 09:17 | ED.GENADULT ---
HPI - General Adult General Chief complaint: Abdominal Pain Stated complaint: abdominal pain Time Seen by Provider: 07/04/23 08:53 History of Present Illness HPI narrative: Slim Anderson is a 57 y/o male with PMHx of IBS/ Asthma, who presents with reports of this off and on right upper abdominal pain over the past 3-4 weeks. He states that he has been trying to adjust what he eats but the pain is getting much worse. He states that eating makes his pain worse. Last BM was yesterday and was loose which he states has been his baseline for years. He denies any fever/chills. No chest pain/ SOB Related Data Home Medications Medication Instructions Recorded Confirmed ergocalciferol (vitamin D2) 1,250 50,000 unit PO WEEKLY 05/15/22 03/02/23 mcg (50,000 unit) capsule omeprazole 40 mg capsule,delayed 40 mg PO DAILY 05/15/22 03/02/23 release Allergies Allergy/AdvReac Type Severity Reaction Status Date / Time No Known Allergies Allergy Verified 07/04/23 08:50 Review of Systems Review of Systems: CONSTITUTIONAL: Denies fever, chills, or sweats. EYES: Denies visual changes, redness, or discharge. ENT: Denies rhinorrhea, congestion, sore throat, or otalgia. CARDIOVASCULAR: Denies chest pain, palpitations, or edema. RESPIRATORY: Denies cough or dyspnea. GASTROINTESTINAL : reports Right Upper abdominal pain that has been off and on for 3-4 weeks and getting worse + Nausea no vomiting GENITOURINARY: Denies dysuria or hematuria. SKIN: Denies rash or itching. MUSCULOSKELETAL: Denies back pain, joint pain, or myalgia. NEUROLOGIC: Denies headache, numbness, dizziness, or weakness. PSYCHIATRIC: Denies anxiety or depression. [facility] Past Medical History Medical History Abdominal pain Acute non-recurrent maxillary sinusitis BMI 28.0-28.9,adult Colon cancer screening normal colonoscopy with Dr. Curiel on 03/11/2021 Encounter to establish care Gastro-esophageal reflux disease without esophagitis EGD with Dr. Curiel on 03/11/2021 with benign duodenal polyp and minimal chronic duodenitis GERD (gastroesophageal reflux disease) Lumbago with sciatica Lump in mouth Prostate cancer screening Tobacco abuse Social History Social History Smoking packs per day: 0.25 Smoking cigarettes per day: 5.0 Years smoked: 30 Smoking pack-years: 7.50 Smoking status: Current every day smoker Tobacco type: cigarettes Alcohol intake: current Substance use: current Substance use type: marijuana Exam Narrative: GENERAL: well-nourished, and in no acute distress. appears to be uncomfortable. HEAD: Normocephalic, atraumatic. EYES: PERRLA and EOMI. ENT: Nares clear, no rhinorrhea or epistaxis. Mucous membranes moist. Oropharynx without tonsillar hypertrophy exudate or other lesions. NECK: Supple. No adenopathy or masses. No carotid bruits or JVD CHEST: Clear to auscultation. No respiratory distress. No wheezes rales or rhonchi HEART: Regular rate and rhythm. No murmur heard. Normal peripheral pulses. ABDOMEN: Soft, bowel sounds present/ + RUQ pain with light palpation EXTREMITIES: Normal range of motion. No edema. SKIN: Warm, dry, no rash. NEURO: No focal deficits. Alert and oriented x3. PSYCH: Normal mood and affect. Course Vital Signs Vital signs: Vital Signs Temperature 36.3 C L 07/04/23 09:01 Pulse Rate 73 07/04/23 09:01 Respiratory Rate 16 07/04/23 09:01 Blood Pressure 156/88 H 07/04/23 09:01 Pulse Oximetry 96 07/04/23 09:01 Temperature 36.3 C L 07/04/23 09:01 Pulse Rate 86 07/04/23 10:54 Respiratory Rate 14 07/04/23 10:54 Blood Pressure 138/86 07/04/23 10:54 Pulse Oximetry 98 07/04/23 10:54 Medical Decision Making MDM Narrative Medical decision making narrative: Patient presents with this waxing and weaning RUQ pain with some nausea for 3-4 weeks that has i
[2023-07-04] MEDS: ONDANSETRON INJ 4 MG/2 ML VIAL IV PUSH (09:26)
[2023-07-04] MEDS: KETOROLAC 30 MG/ML VIAL (*BKC) IV PUSH (09:27)
[2023-07-04] MEDS: FAMOTIDINE 20 MG/2 ML VIAL IV PUSH (09:27)
[2023-07-04] MEDS: LACTATED RINGERS 1,000 ML 999 ML IV CONT (09:29)
[2023-07-04 09:42] LABS: Basophils Absolute Auto 0.1 K/mm3 (0.0-0.1); Basophils Percent Auto 0.8 % (0.2-1.2); Eosinophils Absolute Auto 0.4 K/mm3 (0-0.3); Hematocrit 47.5 % (42.0-52.0); Hemoglobin 15.8 g/dL (14.0-18.0); Immature Granulocyte Absolute 0.07 K/mm3 (0.00-0.031); Immature Granulocyte Percent A 0.7 % (0-0.5); Lymphocytes Absolute Auto 2.21 K/mm3 (0.9-3.2); Lymphocytes Percent Auto 21.9 % (18.3-44.2); Mean Corpuscular HGB Conc 33.3 g/dl (32-36); Mean Corpuscular Volume 99.2 fl (80-100); Mean Platelet Volume 10.5 fl (7.4-10.4); Monocytes Absolute Auto 0.9 K/mm3 (0.1-0.6); Monocytes Percent Auto 9.3 % (2.6-8.5); Neutrophils Absolute Auto 6.4 K/mm3 (1.3-6.7); Neutrophils Percent Auto 63.3 % (45.5-73.1); Platelet Count Result 212 k/mm3 (150-375); Red Blood Count 4.79 M/mm3 (4.6-6.20); Red Cell Distribution Width 12.5 % (11.5-14.5); White Blood Count 10.1 K/mm3 (4.5-10.0)
[2023-07-04 09:51] LABS: Lactic Acid Reflex 1.2 mmol/L (0.7-2.0)
[2023-07-04 09:52] LABS: Alanine Aminotransferase 29 U/L (6-50); Albumin Level 4.2 g/dL (3.5-5.1); Alkaline Phosphatase 106 U/L (38-126); Anion Gap 5 mmol/L (8-16); Aspartate Amino Transferase 28 U/L (17-59); Bilirubin,Total 0.5 mg/dL (0.2-1.3); Blood Urea Nitrogen 12 mg/dL (9-20); Calcium 9.4 mg/dL (8.4-10.2); Carbon Dioxide 28 mmol/L (22-30); Chloride 105 mmol/L (98-107); Estimated CRCL calculation 100 ml/min; Estimated Glomerular Filt Rate > 60; Glucose 102 mg/dL (65-110); Lipase 146 U/L (23-300); Potassium 4.2 mmol/L (3.4-5.0); Sodium 138 mmol/L (137-145)
[2023-07-04 09:58] LABS: Appearance Urine Clear (Clear); Bilirubin Urine Negative (Negative); Blood Urine Negative (Negative); Color Urine Yellow (Yellow); Glucose Urine UA Negative (Negative); Ketones Urine Negative (Negative); Leukocyte Esterase Ur Negative LEU/UL (Negative); Nitrate Urine Negative (Negative); Protein Urine Negative (Negative); Specific Grav Ur 1.008 (1.001-1.035); Urobilinogen Urine 0.2 mg/dL (<2.0); pH Urine 5.5 (5.0-9.0)
[2023-07-04 09:59] LABS: Add Urine Microscopic? NO
[2023-07-04 10:03] LABS: Troponin I < 0.012 ng/mL (0.000-0.034)
[2023-07-04 10:54] VITALS: BP 138/86; PULSE 86; RESP 14; O2SAT 98
== END 2023-07-04 13:23 | disposition home or self-care (01) ==
PROVIDERS: Emergency Provider Nurse Practitioner Family
DX: R10.11 Right upper quadrant pain (principal); R11.0 Nausea; K21.9 Gastro-esophageal reflux disease without esophagitis; F17.210 Nicotine dependence, cigarettes, uncomplicated; K76.0 Fatty (change of) liver, not elsewhere classified; R93.2 Abnormal findings on diagnostic imaging of liver and biliary tract
CPT/HCPCS: 36415; 76705; 80053; 81003; 83605; 83690; 84484; 85025; 93005; 96361; 96374; 96375; 99284; J1885; J2405; J7120

== ENCOUNTER 2023-07-14 14:50 | Emergency (ER) | payer OTHER, SELFPAY ==
--- NOTE | ~2023-07-14 | XR_ITS ---
EXAMINATION: XR chest 2V DATE: 07/14/2023 15:24 INDICATION: Cough and shortness of breath TECHNIQUE: PA and lateral views of the chest were obtained. COMPARISON: Chest radiograph and CT dated 02/27/2023 FINDINGS: Focal consolidation in the left lower lobe without evident volume loss concerning for pneumonia. Righ t lung remains clear. No pulmonary edema, pleural effusion or pneumothorax. The cardiomediastinal anmol houette is normal. Mild thoracic spondylosis with bridging osteophytes at multiple levels consistent with diffuse idiopathic skeletal hyperostosis (DISH). IMPRESSION: 1. Left lower lobe consolidation concerning for pneumonia Reviewed, dictated and finalized at location L.
[2023-07-14 15:05] VITALS: BP 118/68; PULSE 119; RESP 18; TEMP 37.7; O2SAT 93
--- NOTE | 2023-07-14 15:15 | ED.GENADULT ---
HPI - General Adult General Chief complaint: Shortness of Breath/Dyspnea Stated complaint: Sinus/Abdominal Pain Time Seen by Provider: 07/14/23 15:03 Source: patient, RN notes reviewed and old records reviewed Mode of arrival: ambulatory Limitations: no limitations History of Present Illness HPI narrative: 50-year-old male to [facility] with a complaint of productive cough with white phlegm for 3 days. Patient also endorsing worse right upper quadrant pain radiating to right flank and left lower quadrant pain radiating to left lower back. Patient also endorsing decreased appetite for 2 days. Patient endorses that he was seen by Dr. Jameson 2 weeks ago and diagnosed with IBS patient also endorses he was recently at [facility] emergency department for abdominal pain. Patient denies chest pain or shortness of breath upon arrival. Patient able to control secretions. Able to tolerate fluids by mouth. Related Data Allergies Allergy/AdvReac Type Severity Reaction Status Date / Time No Known Allergies Allergy Verified 07/14/23 16:21 Review of Systems Review of Systems: All systems reviewed & are unremarkable except as noted in HPI and below Constitutional: Constitutional: Reports as per HPI and Reports poor appetite Eyes: Eyes: Reports no additional eye complaints ENT: Reports as per HPI, Denies headache(s) and Denies nasal discharge Cardiovascular: Cardiovascular: Reports no additional cardiovascular complaints, Denies chest pain, Denies syncope, Denies lightheadedness and Denies dyspnea Respiratory: Respiratory: Reports as per HPI, Reports cough, Reports excessive phlegm production ( thick white phlegm per patient) and Denies dyspnea Gastrointestinal: Gastrointestinal: Reports abdominal pain (RUQ radiating to right flank; LLQ radiating to left lower back), Denies change in stool character, Denies diarrhea, Denies nausea and Denies vomiting Musculoskeletal: Musculoskeletal: Reports no additional musculoskeletal complaints Neurologic: Reports system reviewed and no additional complaints, except as documented Psychiatric: Psychiatric: Reports no additional psychiatric complaints PMFSH Past Medical History Medical History Abdominal pain Acute non-recurrent maxillary sinusitis BMI 28.0-28.9,adult Colon cancer screening normal colonoscopy with Dr. Curiel on 03/11/2021 Encounter to establish care Gastro-esophageal reflux disease without esophagitis EGD with Dr. Curiel on 03/11/2021 with benign duodenal polyp and minimal chronic duodenitis GERD (gastroesophageal reflux disease) Lumbago with sciatica Lump in mouth Prostate cancer screening Tobacco abuse Social History Social History Smoking packs per day: 0.25 Smoking cigarettes per day: 5.0 Years smoked: 30 Smoking pack-years: 7.50 Smoking status: Current every day smoker Tobacco type: cigarettes Alcohol intake: current Substance use: current Substance use type: marijuana Comments At the time of my signature, I reviewed and agree with the nursing past medical, surgical, social, and family history. There is no relevant family history pertinent to the patient complaint. Exam Const: General: cooperative, no acute distress, alert, awake, in distress mild, ill appearing acutely, tired appearing, uncomfortable, well groomed and well nourished; No confusion Nutritional Appearance: well nourished Orientation/consciousness: patient oriented x3 Limitations: no limitations HENMT: Head: normal to inspection Ears: external ears normal Face/Nose/Sinus: Normal external nose present, Normal nares present, normal facial exam, No erythema and No edema Face and sinus: normal facial exam, no erythema and no edema Mouth: Yes Normal oral and palatal mucosa present Eyes: General: appearance normal, both eyes and all related structures Neck: Neck: normal visual
--- NOTE | 2023-07-14 15:25 | ECG_ITS ---
Measurements Intervals [place] Rate: 109 P: 64 NM: 130 QRS: 75 QRSD: 106 T: 61 QT: 311 QTc: 420 Interpretive Statements SINUS TACHYCARDIA POSSIBLE LEFT ATRIAL ENLARGEMENT ABNORMAL ECG COMPARED TO ECG 07/04/2023 09:02:34 SINUS TACHYCARDIA NOW PRESENT Electronically Signed On 07-14-2023 16:13:04 CDT by Tony Simental D.O.
== END 2023-07-14 15:42 | disposition short-term general hospital (02) ==
PROVIDERS: Emergency Provider Nurse Practitioner Family; PCP Family Medicine
DX: R06.02 Shortness of breath (principal); R10.84 Generalized abdominal pain; J18.9 Pneumonia, unspecified organism; Z20.822 Contact with and (suspected) exposure to COVID-19; F17.210 Nicotine dependence, cigarettes, uncomplicated; K21.9 Gastro-esophageal reflux disease without esophagitis
CPT/HCPCS: 71046; 87426; 87804; 93005; 94640; 99213; G0463

== ENCOUNTER 2023-07-14 16:10 | Inpatient (IN) | payer OTHER, SELFPAY ==
--- NOTE | ~2023-07-14 | CT_ITS ---
EXAMINATION: CT chest abdomen pelvis w con DATE: 07/14/2023 18:35 INDICATION: Shortness of breath. Abdomen pain. TECHNIQUE: Computed tomography (CT) of the abdomen and pelvis was performed with 100 cc Omnipaque 350 intravenous contrast. The dose-length product was 945.38 mGy-cm. Automated exposure control and iter ative reconstruction technique were employed. COMPARISON: None. FINDINGS: There is a small fat-containing umbilical hernia. There is left lower lobe airspace consoli dation, consistent with pneumonia. No thoracic lymphadenopathy. There are a few scattered calcified granulomas in the lung parenchyma. There is emphysema. No endobro nchial lesions. No pneumothorax. The spleen, pancreas, adrenal glands and kidneys are unremarkable. Gallbladder is present. There are fluid-filled mildly distended small bowel loops in the pelvis without definite transition point, like ly ileus. IMPRESSION: 1. Left lower lobe pneumonia. 2: Fluid-filled nondilated small bowel without transition point located in the pelvis, likely ileus. Reviewed, dictated and finalized at location A.
[2023-07-14 16:19] VITALS: BP 142/76; PULSE 112; RESP 18; TEMP 37.4; O2SAT 94
--- NOTE | 2023-07-14 17:16 | ED.URI ---
HPI - URI/Sore Throat General Chief Complaint: Abdominal Pain <Tyshawn Hussein APRN - Last Filed: 07/14/23 17:34> Stated Complaint: PNEUMONIA SENT BY URGENT CARE <Tyshawn Hussein APRN - Last Filed: 07/14/23 17:34> Time Seen by Provider: 07/14/23 17:16 <Tyshawn Hussein APRN - Last Filed: 07/14/23 17:34> Focused HPI: Slim is a 57-year-old male patient presenting to the ER today with complaints consolidation pneumonia to the left lower lobe. He was sent here by the urgent care who had done a chest x-ray and shows probable left lower lobe consolidated pneumonia. Also reporting some chronic abdominal pain that is constant. History of IBS with diarrhea. cough and shortness of breath since Tuesday. Temperature highest was 99.9. General: Well-developed, well nourished, ill appearing Head: Normocephalic, atraumatic. Cardio: Regular rate and rhythm, s1 and s2 normal, no murmur appreciated. Resp: Crackles in the lower bases with expiratory wheezing, no rhonchi or rubs. Abdomen: Soft, pliable, bowel sounds present in all quadrants, generalized tender to palpation, no organomegly, no CVAT tenderness. Patient screened in triage and initial orders placed. Additional care and disposition to be based upon diagnostic testing and treatment. <Tyshawn Hussein APRN - Last Filed: 07/14/23 17:34> Source: patient and family <Tyshawn Hussein APRN - Last Filed: 07/14/23 17:34> Mode of arrival: ambulatory <Tyshawn Hussein APRN - Last Filed: 07/14/23 17:34> Limitations: no limitations <Tyshawn Hussein APRN - Last Filed: 07/14/23 17:34> History of Present Illness HPI Narrative: Patient is a 57-year-old male with history of GERD, active smoker, here with a cough as well as abdominal pain. He states that his abdominal pain has been present for the last 3 years. He states he had a workup done at that time and after colonoscopy was told that he has IBS. He notes that he has had intermittent pain throughout his abdomen since that time. Yesterday was located as right upper quadrant and radiated around to his flank. He then was experiencing some left upper quadrant pain today which radiated into his upper flank. He notes that for the last 3 days he has been having an increased cough with white sputum production. He endorses some associated shortness of breath and diffuse chest pain. He denies any nausea, vomiting, diarrhea. He did go to an urgent care today where an x-ray was performed and he was found to have a left lower lobe pneumonia. He was sent into the emergency department for further evaluation of his abdominal pain. <Vira Herrmann MD - Last Filed: 07/15/23 09:07> Related Data Home Medications: Home Medications Medication Instructions Recorded Confirmed omeprazole 40 mg capsule,delayed 40 mg PO DAILY 07/15/23 07/15/23 release <Tyshawn Hussein APRN - Last Filed: 07/14/23 17:34> Allergies/Adverse Reactions: Allergies Allergy/AdvReac Type Severity Reaction Status Date / Time No Known Allergies Allergy Verified 07/14/23 16:21 <Tyshawn Hussein APRN - Last Filed: 07/14/23 17:34> Review of Systems Review of Systems: All systems reviewed & are unremarkable except as noted in HPI and below <Vira Herrmann MD - Last Filed: 07/15/23 09:07> PMFSH Past Medical History Medical History: Medical History Abdominal pain Acute non-recurrent maxillary sinusitis BMI 28.0-28.9,adult Colon cancer screening normal colonoscopy with Dr. Curiel on 03/11/2021 Encounter to establish care Gastro-esophageal reflux disease without esophagitis EGD with Dr. Curiel on 03/11/2021 with benign duodenal polyp and minimal chronic duodenitis GERD (gastroesophageal reflux disease) Lumbago with sciatica Lump in mouth Prostate cancer screening Tobacco abuse <Tyshawn Hussein APRN - Last Filed: 07/14/23 1
[2023-07-14 17:52] LABS: Basophils Absolute Auto 0.1 K/mm3 (0.0-0.1); Basophils Percent Auto 0.4 % (0.2-1.2); Hematocrit 47.6 % (42.0-52.0); Hemoglobin 16.4 g/dL (14.0-18.0); Immature Granulocyte Absolute 0.37 K/mm3 (0.00-0.031); Immature Granulocyte Percent A 1.6 % (0-0.5); Lymphocytes Absolute Auto 0.88 K/mm3 (0.9-3.2); Lymphocytes Percent Auto 3.9 % (18.3-44.2); Mean Corpuscular HGB Conc 34.5 g/dl (32-36); Mean Corpuscular Hemoglobin 32.8 pg (26-34); Mean Corpuscular Volume 95.2 fl (80-100); Mean Platelet Volume 10.4 fl (7.4-10.4); Monocytes Absolute Auto 0.5 K/mm3 (0.1-0.6); Monocytes Percent Auto 2.3 % (2.6-8.5); Neutrophils Absolute Auto 20.8 K/mm3 (1.3-6.7); Neutrophils Percent Auto 91.8 % (45.5-73.1); Platelet Count Result 177 k/mm3 (150-375); Red Cell Distribution Width 13.1 % (11.5-14.5); White Blood Count 22.6 K/mm3 (4.5-10.0)
[2023-07-14 17:53] VITALS: O2SAT 95
[2023-07-14 18:01] LABS: Alanine Aminotransferase 22 U/L (6-50); Albumin Level 4.3 g/dL (3.5-5.1); Alkaline Phosphatase 67 U/L (38-126); Anion Gap 7 mmol/L (8-16); Aspartate Amino Transferase 26 U/L (17-59); Bilirubin,Total 1.3 mg/dL (0.2-1.3); Blood Urea Nitrogen 19 mg/dL (9-20); Calcium 9.5 mg/dL (8.4-10.2); Carbon Dioxide 28 mmol/L (22-30); Chloride 101 mmol/L (98-107); Estimated CRCL calculation 62 ml/min; Estimated Glomerular Filt Rate 57; Glucose 113 mg/dL (65-110); Lipase 23 U/L (23-300); Potassium 3.7 mmol/L (3.4-5.0); Sodium 136 mmol/L (137-145)
[2023-07-14 18:02] LABS: Lactic Acid Reflex 1.4 mmol/L (0.7-2.0)
[2023-07-14 18:25] LABS: Large Platelets Present; Platelet Estimate Adequate (Adequate); Schistocytes None Seen
[2023-07-14 18:29] LABS: Influenza A QL RT-PCR Negative (Negative); Influenza B QL RT-PCR Negative (Negative); RSV RNA, RT-PCR Negative (Negative); SARS-CoV-2 RNA PCR Negative (Negative)
[2023-07-14 19:19] LABS: Troponin I < 0.012 ng/mL (0.000-0.034)
[2023-07-14 19:57] LABS: Appearance Urine Clear (Clear); Bacteria Urine None Seen /hpf; Bilirubin Urine 1+ (Negative); Blood Urine 2+ (Negative); Color Urine Dark Yellow (Yellow); Glucose Urine UA Negative (Negative); Ketones Urine Trace mg/dL (Negative); Leukocyte Esterase Ur Negative LEU/UL (Negative); Need Manual Microscopic Reviewed; Nitrate Urine Negative (Negative); Non Pathogenic Casts 0-2; Protein Urine 2+ mg/dL (Negative); Squamous Epithelial Cell Urine Occasional /hpf (Few); WBC Urine 0-5 /hpf (0-3)
[2023-07-14 19:59] LABS: Add Urine Microscopic? YES; Specific Grav Ur 1.094 (1.001-1.035)
[2023-07-14 20:29] VITALS: BP 113/72; PULSE 95; RESP 20; O2SAT 93
[2023-07-14] MEDS: ONDANSETRON INJ 4 MG/2 ML VIAL IV PUSH (20:49)
--- NOTE | 2023-07-14 21:15 | PM.IMHP ---
H&P: HPI History of Present Illness Date/Time: 07/14/23 21:15 Chief Complaint: Left lower lobe pneumonia. This is a 57-year-old male patient with a past medical history of IBS with diarrhea was having coughing shortness of breath since Tuesday patient went to urgent care and was found to have left lower lobe pneumonia was sent to emergency room. Patient is awake alert not in acute distress. Denies any fever chills dizziness lightheadedness no blurry vision no chest pain complains of shortness of breath and cough complains of nausea and diarrhea. Denies any abdominal pain. Denies any dysuria no increased urinary frequency no muscle and joint pains. Vital signs in the emergency room was stable. CBC was significant for WBC count of 22.6. Absolute neutrophil count 20.8. CMP was maintaining range. Troponin was normal. Urinalysis showed no pyuria no bacteriuria. Showed RBC 6-10. Influenza COVID RSV were negative. EKG showed sinus tachycardia. CT chest showed left lower lobe pneumonia. Fluid-filled nondilated small bowel without transition point located in the pelvis likely ileus. Patient given IV ceftriaxone and IV doxycycline the emergency room. Review of Systems Review of Systems: A 12 point review of system is done and is only positive what is dictated in the history of present illness. [facility] Past Medical History Medical History Abdominal pain Acute non-recurrent maxillary sinusitis BMI 28.0-28.9,adult Colon cancer screening normal colonoscopy with Dr. Curiel on 03/11/2021 Encounter to establish care Gastro-esophageal reflux disease without esophagitis EGD with Dr. Curiel on 03/11/2021 with benign duodenal polyp and minimal chronic duodenitis GERD (gastroesophageal reflux disease) Lumbago with sciatica Lump in mouth Prostate cancer screening Tobacco abuse Social History Social History Smoking packs per day: 0.25 Smoking cigarettes per day: 5.0 Years smoked: 30 Smoking pack-years: 7.50 Smoking status: Current every day smoker Tobacco type: cigarettes Alcohol intake: current Substance use: current Substance use type: marijuana Meds Home Medications and Allergies Home Medications Medication Instructions Recorded Confirmed Type ondansetron 4 mg disintegrating 4 mg PO Q6H PRN nausea and 07/04/23 Rx tablet vomiting #12 tabs Allergies Allergy/AdvReac Type Severity Reaction Status Date / Time No Known Allergies Allergy Verified 07/14/23 16:21 Vital Signs Vital Signs - 24 hr 07/14/23 16:19 07/14/23 17:53 07/14/23 20:29 Temperature 99.4 F Pulse Rate 112 H 95 Respiratory Rate 18 20 Blood Pressure 142/76 H 113/72 Pulse Oximetry 94 95 93 Oxygen Delivery Room Air Exam Const: Other: Awake alert not in acute distress. HENMT: Other: Normocephalic atraumatic. Neck: Other: Supple no thyromegaly. Resp: Other: Clear to auscultation bilaterally. Cardio: Other: S1-S2 regular no murmur heard. GI: Other: Soft nontender good bowel sounds. Extrem: Other: No pedal edema. H&P: Results Labs Labs: Short CBC 07/14/23 Range/Units 17:47 WBC 22.6 H (4.5-10.0) K/mm3 Hgb 16.4 (14.0-18.0) g/dL Hct 47.6 (42.0-52.0) % Plt Count 177 (150-375) k/mm3 BMP 07/14/23 17:46 Sodium 136 L Potassium 3.7 Chloride 101 Carbon Dioxide 28 BUN 19 Creatinine 1.30 Glucose 113 H Calcium 9.5 Cardiac Enzymes 07/14/23 Range/Units 17:45 Troponin I < 0.012 (0.000-0.034) ng/mL Liver Function 07/14/23 Range/Units 17:46 Total Bilirubin 1.3 (0.2-1.3) mg/dL AST 26 (17-59) U/L ALT 22 (6-50) U/L Alkaline Phosphatase 67 (38-126) U/L Albumin 4.3 (3.5-5.1) g/dL Urine 07/14/23 Range/Units 19:41 Urine Color Dark yellow (Yellow) Urine Appearance Cl
[2023-07-14] MEDS: DOXYCYCLINE 100 MG/NS 100 ML 100 MG/100 ML BAG IVPB (21:20)
--- NOTE | 2023-07-14 21:40 | ADMGEN ---
This patient, Slim Anderson, was admitted to [facility] Surg Room 321-02. Patient/family oriented to hospital policies and general routines including ID bracelet, bed and alarms, visiting hours, pain management, procedures, bathroom and other care routines, personal items, smoking policy, room service/diet, and visiting hours. Information on how to activate the Rapid Response Team has been discussed. Patient/Family are encouraged to report perceived risks to care and to ask questions if they do not understand what they are told or what they should do.
[2023-07-14 22:00] VITALS: BP 116/65; PULSE 91; RESP 18; TEMP 37.9; O2SAT 91; BMI 28.4
[2023-07-14] MEDS: AZITHROMYCIN 500 MG/NS 250 ML 500 MG/250 ML BAG 250 MG IVPB (22:15)
[2023-07-15] VITALS (9 sets, daily range): BP systolic 104–105; BP diastolic 59–62; PULSE 65–84; RESP 18–22; TEMP 36.4–37; O2SAT 92–96
[2023-07-15] MEDS: cefTRIAXone 2 GM/NS 100 ML 2 GM/100 ML BAG IVPB (08:12)
[2023-07-15] MEDS: PANTOPRAZOLE 40 MG TABLET PO ×2 (08:12→21:01)
[2023-07-15 08:30] LABS: Hematocrit 42.8 % (42.0-52.0); Hemoglobin 14.6 g/dL (14.0-18.0); Mean Corpuscular HGB Conc 34.1 g/dl (32-36); Mean Corpuscular Hemoglobin 32.7 pg (26-34); Mean Platelet Volume 10.5 fl (7.4-10.4); Platelet Count Result 156 k/mm3 (150-375); Red Blood Count 4.46 M/mm3 (4.6-6.20); Red Cell Distribution Width 13.2 % (11.5-14.5); White Blood Count 15.9 K/mm3 (4.5-10.0)
[2023-07-15 08:39] LABS: Anion Gap 4 mmol/L (8-16); Blood Urea Nitrogen 23 mg/dL (9-20); Calcium 8.8 mg/dL (8.4-10.2); Carbon Dioxide 26 mmol/L (22-30); Chloride 102 mmol/L (98-107); Estimated CRCL calculation 72 ml/min; Estimated Glomerular Filt Rate > 60; Glucose 106 mg/dL (65-110); Potassium 3.8 mmol/L (3.4-5.0); Sodium 132 mmol/L (137-145)
[2023-07-15] MEDS: ACETAMINOPHEN 325 MG TABLET 650 MG PO ×2 (12:58→21:01)
--- NOTE | 2023-07-15 13:34 | PM.IMPN ---
Progress Note: A&P Assessment and Plan (1) Left lower lobe pneumonia: Qualifiers: Pneumonia type: due to unspecified organism Qualified Code(s): J18.9 - Pneumonia, unspecified organism Code(s): J18.9 - Pneumonia, unspecified organism Status: Acute Assessment and Plan: Left lower lobe pneumonia seen on CXR. Ceftriaxone 2 g IV Q 24h and Azithromycin 500 mg IV Q 24h. Patient requiring 1 L of oxygen at this time. COVID, flu and RSV negative. Nebs scheduled Patient with 50 years of cigarette use of 1-2 packs a day. On exam patient with wheezing noted. Could have component of COPD. (2) Ileus: Code(s): K56.7 - Ileus, unspecified Status: Acute Assessment and Plan: Patient experiencing abdominal pain. CT chest abdomen pelvis showing nondilated small bowel without transition point likely an ileus. Clear liquid diet started. Stool softener q.a.m. Advanced diet as tolerated. Subjective Date/time seen: 07/15/23 13:34 Interval history: patient experiencing cough and shortness of breath. Patient does have sputum production which he describes as white and frothy. Patient endorses a 50 year smoking history with 1-2 packs per day. Patient states that he recently quit approximately 7 days ago. He is require ache was L of oxygen. On exam patient having expiratory wheezing. Symptoms resembling some COPD as well. Exam Narrative: GENERAL: Comfortable, no acute distress HENMT: moist mucous membranes EYES: EOM intact b/l NECK: no lymphadenopathy RESPIRATORY: Expiratory wheezing CARDIO: RRR GI: soft, nontender, bowel sounds present SKIN: no rashes EXTREMITIES: no edema, redness or tenderness Objective Data Vital Signs Vital Signs: Vital Signs - 24 hr 07/14/23 16:19 07/14/23 17:53 07/14/23 20:29 Temperature 99.4 F Pulse Rate 112 H 95 Respiratory Rate 18 20 Blood Pressure 142/76 H 113/72 Pulse Oximetry 94 95 93 Oxygen Delivery Room Air Oxygen Flow Rate 07/14/23 22:00 07/15/23 05:32 07/15/23 08:00 Temperature 100.2 F H 98.6 F Pulse Rate 91 70 76 Respiratory Rate 18 19 Blood Pressure 116/65 105/62 Pulse Oximetry 91 92 92 Oxygen Delivery Nasal Cannula Oxygen Flow Rate 1 Intake/Output Intake/Output: Intake & Output 07/12/23 07/13/23 07/14/23 07/15/23 23:59 23:59 23:59 23:59 Intake Total 400 1322 Balance 400 1322 Meds/Results Medications: Active Medications Generic Name Dose Route Start Last Admin Trade Name Freq PRN Reason Stop Dose Admin Acetaminophen 650 mg 07/15/23 12:46 07/15/23 12:58 Acetaminophen 325 Mg Tablet PO 650 mg Q4H PRN Administration Headache Ceftriaxone Sodium 2 gm in 100 mls @ 200 mls/hr 07/15/23 09:00 07/15/23 08:42 Rocephin 2 Gm/Ns 100 Ml IVPB Infused DAILY RACQUEL Infusion Azithromycin 500 mg in 250 mls @ 250 mls/hr 07/14/23 22:00 07/14/23 23:10 Zithromax IVPB Infused Q24H RACQUEL Infusion Pantoprazole Sodium 40 mg 07/15/23 09:00 07/15/23 08:12 Pantoprazole 40 Mg Tablet PO 40 mg Q12HR RACQUEL Administration Radiology Results: ITS Impressions Chest/Abdomen/Pelvis CT 07/14/23 18:43 IMPRESSION: 1. Left lower lobe pneumonia. 2: Fluid-filled nondilated small bowel without transition point located in the pelvis, likely ileus. Labs Labs: Laboratory Results - last 24 hr 07/14/23 07/14/23 07/14/23 17:45 17:46 17:47 WBC 22.6 H RBC 5.00 Hgb 16.4 Hct 47.6 MCV 95.2 MCH 32.8 MCHC 34.5 RDW 13.1 Plt Count 177 MPV 10.4 Immature Gran % (Auto) 1.6 H Neut % (Auto) 91.8 H Lymph % (Auto) 3.9 L Arthur % (Auto) 2.3 L Eos % (Auto) 0.0 Baso % (Auto) 0.4 Lymph # (Auto) 0.88 L Arthur # (Auto) 0.5 Eos # (Auto) 0.0 Baso # (Auto) 0.1 Abs Immat Gran (auto) 0.37 H Absolute Neuts (auto) 20.8 H Absolute Nucleated RBC 0.000 Nucleated RBC % 0.0 Platele
[2023-07-15] MEDS: IPRATROPIUM 0.5 MG/ALBUTEROL SULFATE 2.5 MG AMPUL.NEB 3 ML INHALATION (20:47)
[2023-07-15] MEDS: AZITHROMYCIN 500 MG/NS 250 ML 500 MG/250 ML BAG 250 MG IVPB (21:01)
[2023-07-16 01:47] VITALS: PULSE 92; RESP 18
[2023-07-16] MEDS: IPRATROPIUM 0.5 MG/ALBUTEROL SULFATE 2.5 MG AMPUL.NEB 3 ML INHALATION ×2 (01:47→08:20)
[2023-07-16 01:58] VITALS: PULSE 96; RESP 18
[2023-07-16 04:18] VITALS: BP 109/63; PULSE 63; RESP 16; TEMP 36.6; O2SAT 97
[2023-07-16 06:55] LABS: Hematocrit 42.1 % (42.0-52.0); Hemoglobin 14.3 g/dL (14.0-18.0); Mean Corpuscular Hemoglobin 32.8 pg (26-34); Mean Corpuscular Volume 96.6 fl (80-100); Mean Platelet Volume 10.6 fl (7.4-10.4); Platelet Count Result 159 k/mm3 (150-375); Red Blood Count 4.36 M/mm3 (4.6-6.20); Red Cell Distribution Width 12.8 % (11.5-14.5); White Blood Count 9.3 K/mm3 (4.5-10.0)
[2023-07-16 07:04] LABS: Anion Gap 6 mmol/L (8-16); Blood Urea Nitrogen 18 mg/dL (9-20); Calcium 8.8 mg/dL (8.4-10.2); Carbon Dioxide 27 mmol/L (22-30); Chloride 101 mmol/L (98-107); Estimated CRCL calculation 79 ml/min; Estimated Glomerular Filt Rate > 60; Glucose 107 mg/dL (65-110); Potassium 3.4 mmol/L (3.4-5.0); Sodium 134 mmol/L (137-145)
[2023-07-16 08:21] VITALS: O2SAT 97
[2023-07-16 08:22] VITALS: PULSE 58; RESP 18
[2023-07-16] MEDS: cefTRIAXone 2 GM/NS 100 ML 2 GM/100 ML BAG IVPB (08:37)
[2023-07-16] MEDS: PANTOPRAZOLE 40 MG TABLET PO (08:44)
--- NOTE | 2023-07-16 10:59 | PM.DS ---
DS: Admitting Diagnosis Discharge Date 07/16/23 Admitting Diagnosis Pneumonia DS: Discharge Diagnosis Discharge Diagnosis (1) Left lower lobe pneumonia: Qualifiers: Pneumonia type: due to unspecified organism Qualified Code(s): J18.9 - Pneumonia, unspecified organism Code(s): J18.9 - Pneumonia, unspecified organism Status: Acute (2) Ileus: Code(s): K56.7 - Ileus, unspecified Status: Acute DS: Summary Hospital Course Hospital Course: This is a 57-year-old male with a past medical history of IBS with diarrhea that presented to the ED on 07/14/2023 due to cough and shortness of breath. Patient had been at a urgent care was found to have left lower lobe pneumonia it was advised to go to the ED. Patient was not hypoxic at that time. He was having some abdominal discomfort as well. CBC was significant for WBC count of 22.6.? Absolute neutrophil count 20.8.? CMP was maintaining range.? Troponin was normal.? Urinalysis showed no pyuria no bacteriuria.? Showed RBC 6-10.? Influenza COVID RSV were negative.? EKG showed sinus tachycardia.? CT chest showed left lower lobe pneumonia.? Fluid-filled nondilated small bowel without transition point located in the pelvis likely ileus.? Patient given IV ceftriaxone and IV doxycycline the emergency room. Patient continue on IV antibiotics and was started on a clear liquid diet. Patient states that he does not have a GI doctor and has struggled with intermittent diarrhea and constipation for the last 3 years. He has been taking omeprazole for this. Suggested to him [id number] Imodium or simethicone for IBS treatment. Patient's shortness of breath and coughing improved on antibiotic therapy. He was transition to oral antibiotics and discharged home on them. His labs and vital signs are stable and he was discharged from the hospital on 07/16/2023. Time Spent with Patient Time attestation: Total time spent providing and/or coordinating discharge services: Exam Narrative: GENERAL: Comfortable, no acute distress HENMT: moist mucous membranes EYES: EOM intact b/l NECK: no lymphadenopathy RESPIRATORY: Clear to auscultation CARDIO: RRR GI: soft, nontender, bowel sounds present SKIN: no rashes EXTREMITIES: no edema, redness or tenderness DS: Data Data Completed and Pending Labs on day of discharge: Labs from last 24 hours 07/16/23 06:37 WBC 9.3 RBC 4.36 L Hgb 14.3 Hct 42.1 MCV 96.6 MCH 32.8 MCHC 34.0 RDW 12.8 Plt Count 159 MPV 10.6 H Sodium 134 L Potassium 3.4 Chloride 101 Carbon Dioxide 27 Anion Gap 6 L BUN 18 Creatinine 1.00 Estim Creat Clear Calc 79 Estimated GFR > 60 Glucose 107 Calcium 8.8 Discharge Plan Discharge Attending physician on discharge: Jesus Oseguera Discharging Clinician: Claudette Sy Patient Disposition: Home, Self-Care Activity: as tolerated Diet: regular Discharge Instructions: DISCHARGE INSTRUCTIONS: Medications: Augmentin twice a day for 5 more days. Next dose tomorrow. Azithromycin daily for 4 more days. Next dose tonight. -Smoking cessation is pertinent -Avoid irritants such as dust or chemicals -Seek treatment when symptoms worsen -Exercising daily can help decrease breathing problems -Use pursed lip breathing. Pursed lip breathing can be used any time you feel short of breath again especially be helpful before restarting activity. Count to 2 while you take a deep breath per your nose. Slowly breathe through your mouth up with her lips slightly puckered. You should make quiet hissing sound as to breathe out. Repeat this exercise 4 to 5 times a day. Once your used to doing pursed lip breathing you can use any time you need air. -Sleep with her upper body raise if you have trouble breathing lying down and elevate your head. -Get vaccinated against COVID, flu and pneumonia. Seek immediate help if: -shortness of breath that is so severe you can
--- NOTE | 2023-07-16 12:31 | PC.NURSE ---
work release given, iV out, d/c discussed with patient. denies questions. left with family
== END 2023-07-16 12:35 | disposition home or self-care (01) | DRG 194 ==
LOC: ANHED 20:21 → ANH3MEDSUR 21:15
PROVIDERS: Nurse Practitioner Family; Admitting Provider Internal Medicine Infectious Disease; Emergency Provider Student in an Organized Health Care Education/Training Program; PCP Family Medicine; Visit Provider Internal Medicine Critical Care Medicine
DX: J18.9 Pneumonia, unspecified organism (principal); K56.7 Ileus, unspecified; Z20.822 Contact with and (suspected) exposure to COVID-19; K21.9 Gastro-esophageal reflux disease without esophagitis; K58.0 Irritable bowel syndrome with diarrhea; Z87.891 Personal history of nicotine dependence
CPT/HCPCS: 36415; 71046; 71260; 74177; 80048; 80053; 83605; 83690; 84484; 85025; 85027; 87426; 87637; 87804; 93005; 94640; 96374; 99213; 99285; A9270; G0463; J0456; J0696; J2405; Q9967

== ENCOUNTER 2023-07-25 10:24 | Emergency (ER) | payer OTHER, SELFPAY ==
--- NOTE | ~2023-07-25 | XR_ITS ---
EXAMINATION: XR chest 2V DATE: 07/25/2023 10:58 INDICATION: Cough. Shortness of breath. TECHNIQUE: Frontal and lateral views of the chest were obtained. COMPARISON: Chest 2 views 07/14/2023, chest CT 07/14/2023 FINDINGS: There are airspace opacities in left lower lobe, consistent with pneumonia. There is a smal l left pleural effusion. No pneumothorax. The heart size is normal. IMPRESSION: 1. Worsened left lower lobe pneumonia. 2. Small left pleural effusion. Reviewed, dictated and finalized at location E.
[2023-07-25 10:35] VITALS: BP 118/68; PULSE 102; RESP 18; TEMP 38; O2SAT 95
--- NOTE | 2023-07-25 10:36 | ECG_ITS ---
Measurements Intervals [place] Rate: 91 P: 54 WI: 134 QRS: 59 QRSD: 95 T: 51 QT: 342 QTc: 422 Interpretive Statements SINUS RHYTHM NORMAL ECG COMPARED TO ECG 07/14/2023 15:30:22 SINUS RHYTHM NOW PRESENT Electronically Signed On 07-25-2023 11:04:08 CDT by Tony Simental D.O.
--- NOTE | 2023-07-25 10:36 | ED.CHESTPAIN ---
HPI - Chest Pain General Chief Complaint: Chest Pain Stated Complaint: chest pain,weakness Time Seen by Provider: 07/25/23 10:36 Source: patient Mode of arrival: ambulatory Limitations: no limitations History of Present Illness HPI narrative: 57 yo M presents with c/o L sided CP and SOB starting this AM. Yesterday he states he had some mild L sided CP but wasn't concerned. During the night was restless . Up and down having diarrhea, achy and chills. Pt discharged from [facility] 07/15After being treated for pneumonia and ileus. Patient completed Augmentin and azithromycin. Patient states that he is still coughing. Has not followed up with his primary care physician. All systems reviewed and negative except as noted above. Related Data Home Medications Medication Instructions Recorded Confirmed omeprazole 40 mg capsule,delayed 40 mg PO DAILY 07/15/23 07/25/23 release Allergies Allergy/AdvReac Type Severity Reaction Status Date / Time No Known Allergies Allergy Verified 07/25/23 10:46 Review of Systems Review of Systems: CONSTITUTIONAL: Denies fever, chills, or sweats. Reports fatigue. EYES: Denies visual changes, redness, or discharge. ENT: Denies rhinorrhea, congestion, sore throat, or otalgia. CARDIOVASCULAR: reports left-sided chest pain. Denies palpitations, or edema. RESPIRATORY: Reports cough and dyspnea. GASTROINTESTINAL: Denies abdominal pain, nausea, vomiting. Reports diarrhea. GENITOURINARY: Denies dysuria or hematuria. SKIN: Denies rash or itching. MUSCULOSKELETAL: Denies back pain, joint pain, or myalgia. NEUROLOGIC: Denies headache, numbness, or weakness. PSYCHIATRIC: Denies anxiety or depression. All other systems reviewed are negative, except as documented in HPI. [facility] Past Medical History Medical History Abdominal pain Acute non-recurrent maxillary sinusitis BMI 28.0-28.9,adult Colon cancer screening normal colonoscopy with Dr. Curiel on 03/11/2021 Encounter to establish care Gastro-esophageal reflux disease without esophagitis EGD with Dr. Curiel on 03/11/2021 with benign duodenal polyp and minimal chronic duodenitis GERD (gastroesophageal reflux disease) Lumbago with sciatica Lump in mouth Prostate cancer screening Tobacco abuse Social History Social History Smoking packs per day: 2 Smoking cigarettes per day: 40.0 Years smoked: 40 Smoking pack-years: 80.00 Smoking status: Former smoker Tobacco type: cigarettes Smoking end date: 07/13/23 Alcohol intake: current Drinks per week: 5 Substance use: never Substance use type: marijuana Do You Feel Safe in your Home?: Yes Lack of Transportation: No Lack of Food: Never True Current Housing: I Have Housing Concerned About Future Housing: No Difficulty Paying Gas/Electric Bills: No Difficulty Paying for Meds: No Currently Unemployed: No Education: Associate Degree Difficulty w/ Childcare or Family Care: No Spiritual care concerns: No Comments At time of signature, agree with nursing past medical, surgical, social and family history. There is no relevant family history pertinent to the presenting complaint. Exam Narrative: GENERAL: This is a well-nourished, well-developed patient, ill-appearing but in no acute distress. HEAD: normocephalic, atraumatic. EYES: PERRL. Sclera clear/white. Vision is grossly intact. EARS: External ears normal, auditory canals clear and without drainage, TMs normal without perforation. Hearing grossly intact. NOSE: External nose normal with no obvious nasal discharge, nares without redness, no rhinorrhea. THROAT: Mucous membranes moist, posterior pharynx clear. NECK: Neck supple, non-tender without lymphadenopathy, masses or thyromegaly. CARDIOVASCULAR: Regular rate and rhythm without murmurs, gallops, or rubs. RESPIRATORY: Decreased left lo
[2023-07-25 10:52] VITALS: TEMP 38.4
[2023-07-25] MEDS: ACETAMINOPHEN 500 MG TABLET 1000 MG PO (10:52)
== END 2023-07-25 11:09 | disposition short-term general hospital (02) ==
PROVIDERS: Emergency Provider Nurse Practitioner Family; PCP Family Medicine
DX: J18.1 Lobar pneumonia, unspecified organism (principal); J10.1 Influenza due to other identified influenza virus with other respiratory manifestations; Z20.822 Contact with and (suspected) exposure to COVID-19; K21.9 Gastro-esophageal reflux disease without esophagitis; Z87.891 Personal history of nicotine dependence
CPT/HCPCS: 71046; 87426; 87804; 93005; 99215; A9270; G0463

== ENCOUNTER 2023-07-25 11:47 | Inpatient (IN) | payer OTHER, SELFPAY ==
[2023-07-25] VITALS (34 sets, daily range): BP systolic 116–137; BP diastolic 55–75; PULSE 82–90; RESP 18–28; TEMP 37.3–38.7; O2SAT 91–98; BMI 27.6
--- NOTE | ~2023-07-25 | XR_ITS ---
EXAMINATION: XR chest 2V DATE: 07/25/2023 12:35 INDICATION: Cough and fever. Chest pain. TECHNIQUE: Frontal and lateral views of the chest were obtained. COMPARISON: Chest 2 views at 10:52 AM FINDINGS: There are airspace opacities in left lower lobe, consistent with pneumonia. There is a smal l left pleural effusion. No pneumothorax. The heart size is normal. IMPRESSION: 1. Stable left lower lobe pneumonia. 2. Stable small left pleural effusion. Reviewed, dictated and finalized at location E.
--- NOTE | ~2023-07-25 | CT_ITS ---
EXAMINATION: CT diagnostic chest w con DATE: 07/25/2023 14:35 INDICATION: Pneumonia. TECHNIQUE: Computed tomography (CT) of the chest was performed with 75 cc Omnipaque 350 intravenous c ontrast. The dose-length product was 376.89 mGy-cm. Automated exposure control and iterative reconstr uction technique were employed. COMPARISON: CT dated 07/14/2023 FINDINGS: No thoracic lymphadenopathy. Small left pleural effusion. Upper abdomen is unremarkable. Le ft lower lobe airspace consolidation. There is focal linear consolidation in the lingula with associa onel calcifications. Endobronchial lesion cannot be excluded. IMPRESSION: 1. Left lower lobe airspace consolidation, likely representing a combination of pneumonia and/or atel ectasis. 2: New area of linear consolidation in the lingula, likely atelectasis. Possible mucous plugging. Reviewed, dictated and finalized at location B. IMPRESSION: 1. Left lower lobe airspace consolidation, likely representing a combination of pneumonia and/or atelectasis. 2: New area of linear consolidation in the lingula, likely atelectasis. Possibl e mucous plugging.
--- NOTE | ~2023-07-25 | XR_ITS ---
EXAMINATION: XR chest 2V DATE: 07/27/2023 13:09 INDICATION: Pneumonia. TECHNIQUE: Frontal and lateral views of the chest were obtained. COMPARISON: Chest 2 views 07/25/2023, chest CT 07/25/2023 FINDINGS: There are airspace opacities in left lower lobe, consistent with pneumonia. There is a smal l left pleural effusion. No pneumothorax. The heart size is normal. IMPRESSION: 1. Stable left lower lobe pneumonia. 2. Stable small left pleural effusion. Reviewed, dictated and finalized at location A.
--- NOTE | 2023-07-25 12:01 | ED.CHESTPAIN ---
HPI - Chest Pain General Chief Complaint: Chest Pain Stated Complaint: SOB Time Seen by Provider: 07/25/23 11:54 History of Present Illness HPI narrative: Pt presents with left sided CP for a few days. Pt was recently seen here in ED and diagnosed with pneumonia and just finished his oral antibiotics a week ago. [facility] and repeat cxr showed a worsening pneumonia so patient was sent to ER. Pt has been febrile and mildly SOB. Related Data Home Medications Medication Instructions Recorded Confirmed omeprazole 40 mg capsule,delayed 40 mg PO DAILY 07/15/23 07/25/23 release Allergies Allergy/AdvReac Type Severity Reaction Status Date / Time No Known Allergies Allergy Verified 07/25/23 16:09 Review of Systems Review of Systems: All systems reviewed & are unremarkable except as noted in HPI and below PMFSH Past Medical History Medical History Abdominal pain Acute non-recurrent maxillary sinusitis BMI 28.0-28.9,adult Colon cancer screening normal colonoscopy with Dr. Curiel on 03/11/2021 Encounter to establish care Gastro-esophageal reflux disease without esophagitis EGD with Dr. Curiel on 03/11/2021 with benign duodenal polyp and minimal chronic duodenitis GERD (gastroesophageal reflux disease) Lumbago with sciatica Lump in mouth Prostate cancer screening Tobacco abuse Social History Social History Smoking packs per day: 2 Smoking cigarettes per day: 40.0 Years smoked: 40 Smoking pack-years: 80.00 Smoking status: Former smoker Tobacco type: cigarettes Second hand tobacco smoke exposure: Yes Smoking end date: 07/13/23 Alcohol intake: current Drinks per week: 3 Substance use: current Substance use type: marijuana Last use: t-2 Do You Feel Safe in your Home?: Yes Lack of Transportation: No Lack of Food: Never True Current Housing: I Have Housing Concerned About Future Housing: No Difficulty Paying Gas/Electric Bills: No Difficulty Paying for Meds: No Currently Unemployed: No Education: Associate Degree Difficulty w/ Childcare or Family Care: No Spiritual care concerns: No Exam Const: General: healthy appearing and no acute distress Nutritional Appearance: well nourished Orientation/consciousness: patient oriented x3 Limitations: no limitations HENMT: Head: normal to inspection Chest: Chest palpation & inspection: normal inspection of the chest Resp: Effort & Inspection: normal respiratory effort Auscultation: diminished lung sounds Cardio: Rate: regular rate Rhythm: regular rhythm GI: GI Palp: Yes Soft to palpation Auscultation: normal bowel sounds Skin: General skin exam: normal color Rashes: no rashes Wounds: no wounds Neuro: General: patient oriented x3, moves all extremities, no meningeal signs, no focal motor deficits and CN's II-XI intact bilaterally Speech: normal speech Extrem: General: normal to inspection and no clubbing, cyanosis or edema Psych: Mental Status: mental status grossly normal Affect: normal affect Attitude: cooperative Course Vital Signs Vital signs: Vital Signs Temperature 99.3 F 07/25/23 11:51 Pulse Rate 84 07/25/23 11:51 Respiratory Rate 23 H 07/25/23 11:51 Blood Pressure 118/74 07/25/23 11:51 Pulse Oximetry 93 07/25/23 11:51 Oxygen Delivery Room Air 07/25/23 11:51 Temperature 99.3 F 07/25/23 16:00 Pulse Rate 87 07/25/23 16:47 Respiratory Rate 28 H 07/25/23 16:00 Blood Pressure 134/68 07/25/23 16:00 Pulse Oximetry 97 07/25/23 16:00 Oxygen Delivery Room Air 07/25/23 16:27 MDM - Chest Pain MDM Narrative Medical decision making narrative: chest pain likely due to pneumonia but will rule out cardiac etiologies. cxr showed worsening pneumonia. will check labs and cultures and likely readmit. wbc elevated worsening pneumonia o
--- NOTE | 2023-07-25 12:05 | ECG_ITS ---
Measurements Intervals [place] Rate: 81 P: 40 MO: 137 QRS: 48 QRSD: 107 T: 43 QT: 384 QTc: 447 Interpretive Statements SINUS RHYTHM NORMAL ECG COMPARED TO ECG 07/25/2023 10:46:26 NO SIGNIFICANT CHANGES Electronically Signed On 07-25-2023 12:47:43 CDT by Tony Simental D.O.
[2023-07-25] MEDS: IPRATROPIUM 0.5 MG/ALBUTEROL SULFATE 2.5 MG AMPUL.NEB 3 ML INHALATION (12:14)
[2023-07-25 12:20] LABS: Hematocrit 39.7 % (42.0-52.0); Hemoglobin 13.7 g/dL (14.0-18.0); Mean Corpuscular HGB Conc 34.5 g/dl (32-36); Mean Corpuscular Hemoglobin 32.9 pg (26-34); Mean Corpuscular Volume 95.2 fl (80-100); Mean Platelet Volume 9.4 fl (7.4-10.4); Platelet Count Result 422 k/mm3 (150-375); Red Blood Count 4.17 M/mm3 (4.6-6.20); Red Cell Distribution Width 13.5 % (11.5-14.5); White Blood Count 29.9 K/mm3 (4.5-10.0)
[2023-07-25] MEDS: SODIUM CHLORIDE 0.9% IV 1,000 ML 999 ML IV CONT (12:20)
[2023-07-25 12:30] LABS: Partial Thromboplastin Time 29.9 Seconds (22.3-36.8)
[2023-07-25 12:31] LABS: Lactic Acid Reflex 1.6 mmol/L (0.7-2.0)
[2023-07-25 12:34] LABS: Alanine Aminotransferase 40 U/L (6-50); Albumin Level 3.6 g/dL (3.5-5.1); Alkaline Phosphatase 88 U/L (38-126); Anion Gap 3 mmol/L (8-16); Aspartate Amino Transferase 28 U/L (17-59); Bilirubin,Total 0.7 mg/dL (0.2-1.3); Blood Urea Nitrogen 12 mg/dL (9-20); CRP 8.3 mg/dL (<1.0); Carbon Dioxide 29 mmol/L (22-30); Chloride 103 mmol/L (98-107); Estimated CRCL calculation 87 ml/min; Estimated Glomerular Filt Rate > 60; Glucose 120 mg/dL (65-110); Potassium 3.7 mmol/L (3.4-5.0); Sodium 135 mmol/L (137-145)
[2023-07-25 12:50] LABS: Troponin I < 0.012 ng/mL (0.000-0.034)
[2023-07-25] MEDS: levoFLOXacin 750 MG/D5W 150 ML 750 MG/150 ML BAG 100 MG IVPB (12:57)
[2023-07-25 13:38] LABS: Monocytes Absolute Manual 2.69 K/mm3 (0.1-0.90); Monocytes Percent Manual 9 % (3-9); Neutrophils Percent Manual 91 % (46-73); Platelet Estimate Increased (Adequate); Schistocytes None Seen; Total Cells Counted 100
[2023-07-25] MEDS: VANCOMYCIN 1,250 MG/NS 250 ML 1,250 MG/250 ML BAG 166.67 MG IVPB ×2 (14:46→16:17)
--- NOTE | 2023-07-25 15:55 | ADMGEN ---
This patient, Slim Anderson, was admitted to Medical Room 243-. Patient/family oriented to hospital policies and general routines including ID bracelet, bed and alarms, visiting hours, pain management, procedures, bathroom and other care routines, personal items, smoking policy, room service/diet, and visiting hours. Information on how to activate the Rapid Response Team has been discussed. Patient/Family are encouraged to report perceived risks to care and to ask questions if they do not understand what they are told or what they should do.
--- NOTE | 2023-07-25 16:17 | PM.IMHP ---
H&P: HPI History of Present Illness Date/Time: 07/25/23 15:45 Chief Complaint: Shortness of breath. Narrative: This is a very pleasant and healthy 57-year-old male with GERD and irritable bowel syndrome who presented to the emergency department for evaluation of shortness of breath. The patient provides the following history. He has not been feeling well for about 2 weeks and he was hospitalized with left lower lobe pneumonia on 07/14/2023. He was discharged 2 days later with prescriptions for Zithromax and Augmentin of which he took to completion. He continued to have a nonproductive cough but was otherwise feeling better until yesterday morning when he developed left-sided pleuritic pain, diffuse body aches, chills, and diarrhea. He was seen at an [facility] where he tested positive for influenza A. Eventually he was sent to the emergency department after chest x-ray showed evidence of worsening left lower lobe pneumonia. His temperature has been as high as 101.6? F since arrival. He does not have an oxygen requirement. Labs were significant for WBC count of 29.9 and a CRP of 8.3. Chest CT showed left lower lobe airspace consolidation representing combination of pneumonia and/or atelectasis and a new area of linear consolidation of the lingula which is likely atelectasis though possible mucus plugging. He was started on levofloxacin and vancomycin in the ED and he is being admitted in this setting for further treatment. Review of Systems Review of Systems: Twelve systems were reviewed. He has been running a fever as above. Reports diffuse body aches. Cough is nonproductive. He denies exertional chest pain. No loose stools since arrival to the floor. Denies sick contacts. No concerns for aspiration. Not on immunosuppressants. Except as documented, all other systems were reviewed and are negative. [facility] Past Medical History Medical History (Updated 07/26/23 @ 14:16 by Peyton Murphy PA-C) Colon cancer screening normal colonoscopy with Dr. Curiel on 03/11/2021 Gastro-esophageal reflux disease without esophagitis EGD with Dr. Curiel on 03/11/2021 with benign duodenal polyp and minimal chronic duodenitis Tobacco abuse Family History Family History (Updated 07/26/23 @ 14:16 by Peyton Murphy PA-C) Other Family history non-contributory Social History Social History (Updated 07/26/23 @ 14:17 by Peyton Murphy PA-C) Social History: Surrogate medical decision maker: Lisa Anderson, spouse. Code status: Full code. Smoking packs per day: 2 Smoking cigarettes per day: 40.0 Years smoked: 40 Smoking pack-years: 80.00 Smoking status: Former smoker Tobacco type: cigarettes Second hand tobacco smoke exposure: Yes Smoking end date: 07/13/23 Alcohol intake: current Drinks per week: 3 Substance use: current Substance use type: marijuana Last use: t-2 Do You Feel Safe in your Home?: Yes Lack of Transportation: No Lack of Food: Never True Current Housing: I Have Housing Concerned About Future Housing: No Difficulty Paying Gas/Electric Bills: No Difficulty Paying for Meds: No Currently Unemployed: No Education: Associate Degree Difficulty w/ Childcare or Family Care: No Spiritual care concerns: No Meds Home Medications and Allergies Home Medications Medication Instructions Recorded Confirmed Type omeprazole 40 mg capsule,delayed 40 mg PO DAILY 07/15/23 07/25/23 History release simethicone 125 mg capsule 125 mg PO DAILY PRN abdominal 07/16/23 07/25/23 Rx distention, gas #30 caps Allergies Allergy/AdvReac Type Severity Reaction Status Date / Time No Known Allergies Allergy Verified 07/25/23 16:09 Vital Signs Vital Signs - 24 hr 07/25/23 11:51 07/25/23 11:58 07/25/23 11:58 Temperature 99.3 F Pulse Rate 84 82 Respiratory Rate 23 H Blood Pressure 118/74 Pulse Oximetry 93 94 Oxygen Delivery Room Air Room Air 07/25/23 12:
[2023-07-25 16:29] LABS: MRSA (PCR) NOT DETECTED (NOT DETECTE)
[2023-07-25] MEDS: HYDROcodone/acetaminophen (*CRX) 5-325 MG TABLET 1 TAB PO (20:32)
[2023-07-25] MEDS: ACETAMINOPHEN 325 MG TABLET 650 MG PO (20:35)
[2023-07-26] VITALS (18 sets, daily range): BP systolic 119–141; BP diastolic 62–68; PULSE 75–97; RESP 14–22; TEMP 36.4–37.1; O2SAT 87–93; BMI 27.6
[2023-07-26] MEDS: KETOROLAC 30 MG/ML VIAL (*BKC) IV PUSH (02:03)
[2023-07-26] MEDS: OSELTAMIVIR PHOSPHATE 75 MG CAPSULE PO ×3 (02:03→21:38)
[2023-07-26] MEDS: VANCOMYCIN 1,500 MG/NS 500 ML 1,500 MG/500 ML BAG 250 MG IVPB ×2 (02:04→14:39)
[2023-07-26] MEDS: IPRATROPIUM 0.5 MG/ALBUTEROL SULFATE 2.5 MG AMPUL.NEB 3 ML INHALATION ×4 (03:44→20:27)
[2023-07-26 06:01] LABS: Hematocrit 35.3 % (42.0-52.0); Hemoglobin 11.8 g/dL (14.0-18.0); Mean Corpuscular HGB Conc 33.4 g/dl (32-36); Mean Corpuscular Hemoglobin 32.6 pg (26-34); Mean Corpuscular Volume 97.5 fl (80-100); Mean Platelet Volume 9.6 fl (7.4-10.4); Platelet Count Result 330 k/mm3 (150-375); Red Blood Count 3.62 M/mm3 (4.6-6.20); Red Cell Distribution Width 13.4 % (11.5-14.5); White Blood Count 21.3 K/mm3 (4.5-10.0)
[2023-07-26 06:13] LABS: Anion Gap 0 mmol/L (8-16); Blood Urea Nitrogen 13 mg/dL (9-20); Calcium 8.3 mg/dL (8.4-10.2); Carbon Dioxide 31 mmol/L (22-30); Chloride 104 mmol/L (98-107); Estimated CRCL calculation 97 ml/min; Estimated Glomerular Filt Rate > 60; Glucose 116 mg/dL (65-110); Magnesium 1.7 mg/dL (1.6-2.3); Potassium 3.7 mmol/L (3.4-5.0); Sodium 135 mmol/L (137-145)
[2023-07-26] MEDS: DORNASE ALFA INH SOLN 1 MG/ML 2.5 ML AMP 2.5 MG INHALATION ×2 (07:36→20:27)
--- NOTE | 2023-07-26 08:03 | PM.IMPN ---
Progress Note: A&P Assessment and Plan (1) Pneumonia: Code(s): J18.9 - Pneumonia, unspecified organism Status: Acute Assessment and Plan: see plan below (2) Left lower lobe pneumonia: Qualifiers: Pneumonia type: due to unspecified organism Qualified Code(s): J18.9 - Pneumonia, unspecified organism Code(s): J18.9 - Pneumonia, unspecified organism Status: Acute Assessment and Plan: Bronchodilators. CT chest: Left lower lobe airspace consolidation likely representing PNA and/or atelectasis incentive spirometry while awake. sputum culture ordered influenza/COVID/RSV pending antibiotic therapy vancomycin / levofloxacin IV supplemental oxygen therapy to maintain oxygen 92% Needs to weaned Guaifenesin b.i.d. Antipyretics for fever and body aches (3) COPD (chronic obstructive pulmonary disease): Qualifiers: COPD type: unspecified COPD Qualified Code(s): J44.9 - Chronic obstructive pulmonary disease, unspecified Code(s): J44.9 - Chronic obstructive pulmonary disease, unspecified Status: Acute Assessment and Plan: chronic not in exacerbation (4) Asthma: Qualifiers: Asthma severity: unspecified severity Asthma persistence: unspecified Asthma complication type: with acute exacerbation Qualified Code(s): J45.901 - Unspecified asthma with (acute) exacerbation Code(s): J45.909 - Unspecified asthma, uncomplicated Status: Chronic Assessment and Plan: Not in exacerbation Plan Continue home medications: VTE Prophylaxis: enoxaparin DIET: regular diet Anticipated hospital stay: > 2 days Code Status: Full Subjective Date/time seen: 07/26/23 08:03 Interval history: 07/25: Patient seen this a.m., he is resting with eyes closed, easily arouses complains of ongoing body aches and weakness. patient was seen and treated at [facility] where he was diagnosed with influenza A. patient had chest CT which shows left lower lobe airspace consolidation this representing a combination of PNA and/or atelectasis this will is a new area of linear consolidation of the lingula which is likely atelectasis or possible mucus plugging. Patient started on levofloxacin and vancomycin in the ED. Exam Narrative: General: Moderately ill-appearing gentleman in the semi-Ramon position in bed. HEENT: Normocephalic, atraumatic. PERRL, EOMI. Sclera anicteric. Tacky mucous membranes. Neck: Supple. Respiratory: Respirations are nonlabored. Occasionally takes shallow breaths due to splinting from pleuritic pain. Lung sounds are diminished at the left base with scattered rales. Cardiovascular: Regular rate and rhythm with S1-S2. Gastrointestinal: Abdomen is soft, nontender, and nondistended with positive bowel sounds. Skin: Warm and dry. No rash or lesions on limited exam. Extremities: No cyanosis, clubbing, or edema. Radial and pedal pulses intact. Neurological: Alert. Cranial nerves 2-12 are grossly intact. No gross focal deficits to casual conversation. Psychiatric: Pleasant and cooperative with normal mood and affect. Judgment and insight intact. Objective Data Vital Signs Vital Signs: Vital Signs - 24 hr 07/25/23 11:51 07/25/23 11:58 07/25/23 11:58 Temperature 99.3 F Pulse Rate 84 82 Respiratory Rate 23 H Blood Pressure 118/74 Pulse Oximetry 93 94 Oxygen Delivery Room Air Room Air 07/25/23 12:02 07/25/23 12:06 07/25/23 12:24 Temperature Pulse Rate 87 82 84 Respiratory Rate 22 H 22 H 20 Blood Pressure 117/69 Pulse Oximetry 92 Oxygen Delivery 07/25/23 12:04 07/25/23 12:15 07/25/23 12:16 Temperature Pulse Rate 85 83 88 Respiratory Rate 28 H 23 H 20 Blood Pressure 118/55 L Pulse Oximetry 92 93 93 Oxygen Delivery 07/25/23 12:36 07/25/23 12:45 07/25/23 12:58 Temperature Pulse Rate 86 84 Respiratory Rate 21 H 25 H Blood Pressure 134/65 Pulse Oximetr
[2023-07-26] MEDS: PANTOPRAZOLE 40 MG TABLET PO ×2 (09:38→21:38)
[2023-07-26] MEDS: guaiFENesin 12 HR 600 MG TABCR PO ×2 (09:38→21:38)
[2023-07-26] MEDS: HYDROcodone/acetaminophen (*CRX) 5-325 MG TABLET 1 TAB PO (09:38)
--- NOTE | 2023-07-26 12:11 | PCCCNOTE ---
On 07/26/23, the student, [Alma Tong], provided care and completed [facility] documentation on this patient. I have reviewed the student's documentation and agree with the findings.
[2023-07-26] MEDS: levoFLOXacin 750 MG/D5W 150 ML 750 MG/150 ML BAG 100 MG IVPB (12:52)
[2023-07-26] MEDS: MORPHINE SULFATE (*CRX) 2 MG/ML INJ IV PUSH (13:36)
--- NOTE | 2023-07-26 13:46 | ECG_ITS ---
Measurements Intervals [place] Rate: 84 P: 29 GA: 112 QRS: 34 QRSD: 113 T: 36 QT: 374 QTc: 443 Interpretive Statements SINUS RHYTHM WITH SHORT GA INTERVAL INTRAVENTRICULAR CONDUCTION DELAY BORDERLINE ECG COMPARED TO ECG 07/25/2023 12:14:23 INTRAVENTRICULAR CONDUCTION DELAY NOW PRESENT Electronically Signed On 07-26-2023 16:07:44 CDT by Tony Simental D.O.
[2023-07-26] MEDS: methylPREDNISolone SOD SUCC 125 MG VIAL 60 MG IV PUSH (14:10)
[2023-07-26 15:29] LABS: Troponin I < 0.012 ng/mL (0.000-0.034)
[2023-07-26 16:11] LABS: Influenza A QL RT-PCR Negative (Negative); Influenza B QL RT-PCR Negative (Negative); RSV RNA, RT-PCR Negative (Negative); SARS-CoV-2 RNA PCR Negative (Negative)
[2023-07-27] VITALS (15 sets, daily range): BP systolic 116–125; BP diastolic 63–68; PULSE 68–92; RESP 16–20; TEMP 36.2–36.8; O2SAT 90–96
[2023-07-27 01:44] LABS: Hematocrit 37.3 % (42.0-52.0); Hemoglobin 12.3 g/dL (14.0-18.0); Mean Corpuscular Volume 97.1 fl (80-100); Mean Platelet Volume 9.5 fl (7.4-10.4); Platelet Count Result 377 k/mm3 (150-375); Red Blood Count 3.84 M/mm3 (4.6-6.20); Red Cell Distribution Width 13.6 % (11.5-14.5); White Blood Count 19.1 K/mm3 (4.5-10.0)
[2023-07-27 01:47] LABS: Alanine Aminotransferase 33 U/L (6-50); Albumin Level 3.3 g/dL (3.5-5.1); Alkaline Phosphatase 71 U/L (38-126); Anion Gap 5 mmol/L (4-12); Aspartate Amino Transferase 34 U/L (17-59); Bilirubin,Total 0.4 mg/dL (0.2-1.3); Blood Urea Nitrogen 12 mg/dL (9-20); Calcium 8.8 mg/dL (8.4-10.2); Carbon Dioxide 27 mmol/L (22-30); Chloride 103 mmol/L (98-107); Estimated CRCL calculation 87 ml/min; Estimated Glomerular Filt Rate > 60; Glucose 201 mg/dL (65-110); Potassium 3.8 mmol/L (3.4-5.0); Sodium 135 mmol/L (137-145)
[2023-07-27 02:10] LABS: Vancomycin Trough 9.2 ug/mL (10.0-20.0)
[2023-07-27 02:11] LABS: Band Neutrophils Percent 1 % (0-6); Neutrophils Absolute Manual 18.52 K/mm3 (1.3-6.7); Neutrophils Percent Manual 96 % (46-73); Total Cells Counted 100
[2023-07-27 02:12] LABS: Lymphocytes Absolute Manual 0.38 K/mm3 (1.1-4.5); Lymphocytes Percent Manual 2 % (18-44); Monocytes Absolute Manual 0.19 K/mm3 (0.1-0.90); Monocytes Percent Manual 1 % (3-9); Ovalocytes 1+; Platelet Estimate Adequate (Adequate); Schistocytes None Seen
[2023-07-27] MEDS: IPRATROPIUM 0.5 MG/ALBUTEROL SULFATE 2.5 MG AMPUL.NEB 3 ML INHALATION ×4 (02:21→20:45)
[2023-07-27] MEDS: VANCOMYCIN 1,500 MG/NS 500 ML 1,500 MG/500 ML BAG 250 MG IVPB ×2 (03:07→10:55)
[2023-07-27] MEDS: ENOXAPARIN 40 MG/0.4 ML SYRINGE SUB-Q (09:01)
[2023-07-27] MEDS: OSELTAMIVIR PHOSPHATE 75 MG CAPSULE PO ×2 (09:01→21:49)
[2023-07-27] MEDS: PANTOPRAZOLE 40 MG TABLET PO ×2 (09:01→21:49)
[2023-07-27] MEDS: guaiFENesin 12 HR 600 MG TABCR PO ×2 (09:02→21:49)
[2023-07-27 09:23] LABS: Procalcitonin 0.1 ng/mL
[2023-07-27 10:08] LABS: CRP 29.9 mg/dL (<1.0)
[2023-07-27] MEDS: methylPREDNISolone SOD SUCC 125 MG VIAL 40 MG IV PUSH ×3 (12:53→23:55)
[2023-07-27] MEDS: levoFLOXacin 750 MG/D5W 150 ML 750 MG/150 ML BAG 100 MG IVPB (12:54)
--- NOTE | 2023-07-27 13:06 | PM.IMPN ---
Progress Note: A&P Assessment and Plan (1) Left lower lobe pneumonia: Qualifiers: Pneumonia type: due to unspecified organism Qualified Code(s): J18.9 - Pneumonia, unspecified organism Code(s): J18.9 - Pneumonia, unspecified organism Status: Acute Assessment and Plan: Improving on IV Levaquin and steroids. Influenza A positive continue Tamiflu. Due to recurrent influence of with elevated white blood cell count we will consult pulmonology. Imaging showed possible mucus plugging and patient may benefit bronchoscopy. (2) Influenza A: Code(s): J10.1 - Influenza due to other identified influenza virus with other respiratory manifestations Status: Inactive Assessment and Plan: Continue Tamiflu. This was mistakenly discontinued then restarted without any missed doses. Plan Discontinue vancomycin, continue Levaquin and Tamiflu Consult pulmonology to determine if patient might need bronchoscopy Time Spent With Patient Time with patient: 25 - 35 minutes Subjective Date/time seen: 07/27/23 13:06 Interval history: 07/24: This is a very pleasant and healthy 57-year-old male with GERD and irritable bowel syndrome who presented to the emergency department for evaluation of shortness of breath. The patient provides the following history. He has not been feeling well for about 2 weeks and he was hospitalized with left lower lobe pneumonia on 07/14/2023. He was discharged 2 days later with prescriptions for Zithromax and Augmentin of which he took to completion. He continued to have a nonproductive cough but was otherwise feeling better until yesterday morning when he developed left-sided pleuritic pain, diffuse body aches, chills, and diarrhea. He was seen at an [facility] where he tested positive for influenza A. Eventually he was sent to the emergency department after chest x-ray showed evidence of worsening left lower lobe pneumonia. His temperature has been as high as 101.6? F since arrival. He does not have an oxygen requirement. Labs were significant for WBC count of 29.9 and a CRP of 8.3. Chest CT showed left lower lobe airspace consolidation representing combination of pneumonia and/or atelectasis and a new area of linear consolidation of the lingula which is likely atelectasis though possible mucus plugging. He was started on levofloxacin and vancomycin in the ED and he is being admitted in this setting for further treatment. 07/25: Patient seen this a.m., he is resting with eyes closed, easily arouses complains of ongoing body aches and weakness. patient was seen and treated at [facility] where he was diagnosed with influenza A. patient had chest CT which shows left lower lobe airspace consolidation this representing a combination of PNA and/or atelectasis this will is a new area of linear consolidation of the lingula which is likely atelectasis or possible mucus plugging. Patient started on levofloxacin and vancomycin in the ED. 07/26: Patient reports he is feeling much better today than yesterday. White blood cell count is improving but still significantly elevated. Repeat CRP is also more elevated. Patient did better after IV steroids yesterday. Will initiate IV steroids and consult pulmonology. Discussion with Infectious Disease pharmacist decision made to discontinue vancomycin due to negative MRSA nares. Patient has been on supplemental oxygen but keeps taking it off. Patient states no more chest pain and his breathing feels better. Review of Systems Review of Systems: All systems reviewed & are unremarkable except as noted in HPI and below Exam Narrative: General: No acute distress mildly ill-appearing. HEENT: Normocephalic, atraumatic. PERRL, EOMI. Sclera anicteric. Moist mucous membranes. Neck: Supple. No JVD Respiratory: Respirations are nonlabored. Clear lung sounds to auscultation. Cardiovascular: Regular rate and rhythm with S1-S2. Gastrointestinal: Abdomen is
--- NOTE | 2023-07-27 19:02 | PM.CNPUL ---
Assessment and Plan Assessment and plan (1) Pneumonia and influenza: Code(s): J11.00 - Influenza due to unidentified influenza virus with unspecified type of pneumonia Status: Acute Assessment and Plan: Was readmitted July 24 with influenza A with persistent LLL pneumonia diagnosed July 13 requiring 2 days in the hospital. He was febrile this admission and hypoxemic, no fever since July 24 when he was 38.5 C, so now 4 days without fever. He needs O2 to maintain saturation. I will add Cornet valve to help clear secretions, stop dornase alpha as this has not helped get secretions out. influenza A can be complicated by infections although this patient had a left lower lobe pneumonia prior to being diagnosed with influenza a, initial infiltrate was July 13 and is influenza a was July 24. Fever resolved, last fever was 3 days ago, improving. Could take up to 2 months for his infiltrate to completely disappear. (2) COPD (chronic obstructive pulmonary disease): Qualifiers: COPD type: unspecified COPD Qualified Code(s): J44.9 - Chronic obstructive pulmonary disease, unspecified Code(s): J44.9 - Chronic obstructive pulmonary disease, unspecified Status: Acute Assessment and Plan: Probable diagnosis. Heavy smoking history 1.5-2 packs per day approximately 30 years, has had a few years when he was off cigarettes. He is on no controller medications, has a nebulizer at home that he acquired after an ED visit in May outside the [place] system, says that albuterol helps at home when he cannot catch his breath. Has wheezing. Will need PFTS after this episode resolves. (3) History of tobacco abuse: Code(s): Z87.891 - Personal history of nicotine dependence Status: Acute Assessment and Plan: He smoked 1.5-2 ppd, none since July 16, 2023; smoked decades; had a period of time without tobacco several years ago using Chantix; recently quit July 15; smokes, need tobacco cessation support to help quit and avoid relapse Plan Continue current antibiotic, Levaquin, transition to oral. He is eating and keeping down fluids. He can tolerate po Levaquin. Change IV solumedrol 40 IV Q 6 hours to Q 8 hours, switch to po prednisone tomorrow am. Home oxygen study in the morning; he is on 2 L but could go down to 1 L as his saturation is 97%. Cornet vibratory valve to help expectorate secretions. Stop Dornase cathy; he has been on it for over 2 days and it has not really helped mobilize secretions. Add COPD controller medications; Trelegy 100/62.5/4.5, stop Duoneb, start albuterol inhaler and albuterol nebulized prn. Avoid smoke, including secondhand smoke in the home environment. Tobacco cessation info for and himself. He does not have high eosinophils; has been on recent antibiotics and steroids before this admission. When at his baseline after discharge, needs PFTS, annual screening for lung cancer, obtain vaccinations including pneumococcal and update COVID vaccination. Bronchoscopy is not needed at this time. d/w Michael Garcia APRN. History of Present Illness History of Present Illness Consult date: 07/28/23 Requesting physician: Michael Garcia APRN Chief complaint: Pneumonia Narrative: patient was seen July 27 at 14:40 Room 243; family at bedside- Lisa, daughter Skylar and her boyfriend Michael Garcia APRN asked to see him regarding possible bronchoscopy, any other assistance with his care NEW: Slim Anderson is a 57-year-old man with heavy smoking history 1.5-2 ppd, about 35 years, none since July 15 after he was discharged home after 2 days here for LLL pneumonia with wbc 22.6. He worsened, returned March 25, to urgent care, (+) positive influenza A swab,
[2023-07-27] MEDS: DORNASE ALFA INH SOLN 1 MG/ML 2.5 ML AMP 2.5 MG INHALATION (20:44)
[2023-07-28] VITALS (12 sets, daily range): BP systolic 99–130; BP diastolic 57–69; PULSE 72–88; RESP 16–20; TEMP 36.2–36.7; O2SAT 91–97
[2023-07-28] MEDS: IPRATROPIUM 0.5 MG/ALBUTEROL SULFATE 2.5 MG AMPUL.NEB 3 ML INHALATION ×3 (02:00→12:59)
[2023-07-28 06:02] LABS: Basophils Percent Auto 0.2 % (0.2-1.2); Hematocrit 35.3 % (42.0-52.0); Hemoglobin 11.7 g/dL (14.0-18.0); Immature Granulocyte Absolute 0.38 K/mm3 (0.00-0.031); Immature Granulocyte Percent A 1.9 % (0-0.5); Lymphocytes Absolute Auto 0.81 K/mm3 (0.9-3.2); Lymphocytes Percent Auto 4.1 % (18.3-44.2); Mean Corpuscular HGB Conc 33.1 g/dl (32-36); Mean Corpuscular Hemoglobin 32.2 pg (26-34); Mean Corpuscular Volume 97.2 fl (80-100); Mean Platelet Volume 9.7 fl (7.4-10.4); Monocytes Absolute Auto 0.6 K/mm3 (0.1-0.6); Monocytes Percent Auto 3.2 % (2.6-8.5); Neutrophils Absolute Auto 18.1 K/mm3 (1.3-6.7); Neutrophils Percent Auto 90.6 % (45.5-73.1); Platelet Count Result 393 k/mm3 (150-375); Red Blood Count 3.63 M/mm3 (4.6-6.20); Red Cell Distribution Width 13.6 % (11.5-14.5)
[2023-07-28 06:14] LABS: Alanine Aminotransferase 165 U/L (6-50); Albumin Level 3.2 g/dL (3.5-5.1); Alkaline Phosphatase 73 U/L (38-126); Anion Gap 3 mmol/L (4-12); Aspartate Amino Transferase 112 U/L (17-59); Bilirubin,Total 0.4 mg/dL (0.2-1.3); Blood Urea Nitrogen 14 mg/dL (9-20); Carbon Dioxide 29 mmol/L (22-30); Chloride 105 mmol/L (98-107); Estimated CRCL calculation 87 ml/min; Estimated Glomerular Filt Rate > 60; Glucose 149 mg/dL (65-110); Sodium 137 mmol/L (137-145)
[2023-07-28] MEDS: methylPREDNISolone SOD SUCC 40 MG VIAL IV PUSH ×2 (06:46→12:34)
[2023-07-28] MEDS: DORNASE ALFA INH SOLN 1 MG/ML 2.5 ML AMP 2.5 MG INHALATION (07:12)
[2023-07-28] MEDS: PANTOPRAZOLE 40 MG TABLET PO ×2 (08:17→21:46)
[2023-07-28] MEDS: guaiFENesin 12 HR 600 MG TABCR PO ×2 (08:17→21:46)
[2023-07-28] MEDS: OSELTAMIVIR PHOSPHATE 75 MG CAPSULE PO ×2 (08:18→21:46)
[2023-07-28] MEDS: ENOXAPARIN 40 MG/0.4 ML SYRINGE SUB-Q (08:18)
--- NOTE | 2023-07-28 11:35 | PCCCNOTE ---
On 07/28/23, the student, Alma Tong, provided care and completed [facility] documentation on this patient. I have reviewed the student's documentation and agree with the findings.
[2023-07-28] MEDS: levoFLOXacin 750 MG/D5W 150 ML 750 MG/150 ML BAG 100 MG IVPB (12:34)
--- NOTE | 2023-07-28 12:56 | PC.NURSE ---
On 07/28/23, the student, [Luanne Menezes], provided care and completed [facility] documentation on this patient. I have reviewed the student's documentation and agree with the findings.
--- NOTE | 2023-07-28 12:59 | PM.IMPN ---
Progress Note: A&P Assessment and Plan (1) Left lower lobe pneumonia: Qualifiers: Pneumonia type: due to unspecified organism Qualified Code(s): J18.9 - Pneumonia, unspecified organism Code(s): J18.9 - Pneumonia, unspecified organism Status: Acute Assessment and Plan: Improving on IV Levaquin and steroids. Influenza A positive continue Tamiflu. Due to recurrent influence of with elevated white blood cell count we will consult pulmonology. Imaging showed possible mucus plugging and patient may benefit bronchoscopy. (2) Influenza A: Code(s): J10.1 - Influenza due to other identified influenza virus with other respiratory manifestations Status: Inactive Assessment and Plan: Continue Tamiflu. This was mistakenly discontinued then restarted without any missed doses. Plan Discontinue vancomycin, continue Levaquin and Tamiflu Consult pulmonology to determine if patient might need bronchoscopy Time Spent With Patient Time with patient: 25 - 35 minutes Subjective Date/time seen: 07/28/23 12:59 Interval history: 07/24: This is a very pleasant and healthy 57-year-old male with GERD and irritable bowel syndrome who presented to the emergency department for evaluation of shortness of breath. The patient provides the following history. He has not been feeling well for about 2 weeks and he was hospitalized with left lower lobe pneumonia on 07/14/2023. He was discharged 2 days later with prescriptions for Zithromax and Augmentin of which he took to completion. He continued to have a nonproductive cough but was otherwise feeling better until yesterday morning when he developed left-sided pleuritic pain, diffuse body aches, chills, and diarrhea. He was seen at an [facility] where he tested positive for influenza A. Eventually he was sent to the emergency department after chest x-ray showed evidence of worsening left lower lobe pneumonia. His temperature has been as high as 101.6? F since arrival. He does not have an oxygen requirement. Labs were significant for WBC count of 29.9 and a CRP of 8.3. Chest CT showed left lower lobe airspace consolidation representing combination of pneumonia and/or atelectasis and a new area of linear consolidation of the lingula which is likely atelectasis though possible mucus plugging. He was started on levofloxacin and vancomycin in the ED and he is being admitted in this setting for further treatment. 07/25: Patient seen this a.m., he is resting with eyes closed, easily arouses complains of ongoing body aches and weakness. patient was seen and treated at [facility] where he was diagnosed with influenza A. patient had chest CT which shows left lower lobe airspace consolidation this representing a combination of PNA and/or atelectasis this will is a new area of linear consolidation of the lingula which is likely atelectasis or possible mucus plugging. Patient started on levofloxacin and vancomycin in the ED. 07/26: Patient reports he is feeling much better today than yesterday. White blood cell count is improving but still significantly elevated. Repeat CRP is also more elevated. Patient did better after IV steroids yesterday. Will initiate IV steroids and consult pulmonology. Discussion with Infectious Disease pharmacist decision made to discontinue vancomycin due to negative MRSA nares. Patient has been on supplemental oxygen but keeps taking it off. Patient states no more chest pain and his breathing feels better. 07/27: Patient has been on off supplemental oxygen. Currently at 1.5 liters/minute. Without oxygen he saturates below 90%. Patient reports that he is off work and not getting paid because he is out of vacation time and he does know how much longer he will be able to stay hospitalized due to financial concerns. However, patient is very fatigued and dyspneic with activity. Awaiting Pulmonary. Review of Systems Review of Systems: All systems reviewed & are
[2023-07-29] VITALS (7 sets, daily range): BP systolic 104–128; BP diastolic 64–68; PULSE 64–89; RESP 18–20; TEMP 36.1–36.5; O2SAT 94–99
[2023-07-29] MEDS: methylPREDNISolone SOD SUCC 40 MG VIAL IV PUSH ×2 (00:15→10:10)
[2023-07-29 00:28] LABS: Legionella pneumophila Ag Ur Not Detected (Not Detected)
[2023-07-29 01:27] LABS: Pneumococcal Antigen Urine Not Detected (Not Detected)
[2023-07-29 05:43] LABS: Basophils Percent Auto 0.2 % (0.2-1.2); Hematocrit 40.3 % (42.0-52.0); Hemoglobin 13.1 g/dL (14.0-18.0); Immature Granulocyte Absolute 0.48 K/mm3 (0.00-0.031); Immature Granulocyte Percent A 2.5 % (0-0.5); Lymphocytes Absolute Auto 1.12 K/mm3 (0.9-3.2); Lymphocytes Percent Auto 5.9 % (18.3-44.2); Mean Corpuscular HGB Conc 32.5 g/dl (32-36); Mean Corpuscular Hemoglobin 32.1 pg (26-34); Mean Corpuscular Volume 98.8 fl (80-100); Mean Platelet Volume 9.9 fl (7.4-10.4); Monocytes Absolute Auto 0.6 K/mm3 (0.1-0.6); Monocytes Percent Auto 3.1 % (2.6-8.5); Neutrophils Absolute Auto 16.6 K/mm3 (1.3-6.7); Neutrophils Percent Auto 88.3 % (45.5-73.1); Platelet Count Result 453 k/mm3 (150-375); Red Blood Count 4.08 M/mm3 (4.6-6.20); Red Cell Distribution Width 13.5 % (11.5-14.5); White Blood Count 18.9 K/mm3 (4.5-10.0)
[2023-07-29 05:52] LABS: Alanine Aminotransferase 163 U/L (6-50); Albumin Level 3.5 g/dL (3.5-5.1); Alkaline Phosphatase 82 U/L (38-126); Anion Gap 4 mmol/L (4-12); Aspartate Amino Transferase 62 U/L (17-59); Bilirubin,Total 0.5 mg/dL (0.2-1.3); Blood Urea Nitrogen 17 mg/dL (9-20); Calcium 9.3 mg/dL (8.4-10.2); Carbon Dioxide 30 mmol/L (22-30); Chloride 104 mmol/L (98-107); Estimated CRCL calculation 87 ml/min; Estimated Glomerular Filt Rate > 60; Glucose 135 mg/dL (65-110); Potassium 3.8 mmol/L (3.4-5.0); Sodium 138 mmol/L (137-145)
[2023-07-29] MEDS: FLUTICASONE/UMECLIDIN/VILANTER 100-62.5-25 MCG ELLIPTA 1 PUFF INHALATION (08:08)
--- NOTE | 2023-07-29 09:13 | PM.IMPN ---
Progress Note: A&P Assessment and Plan (1) Left lower lobe pneumonia: Qualifiers: Pneumonia type: due to unspecified organism Qualified Code(s): J18.9 - Pneumonia, unspecified organism <Brittany Jasso, Student - Last Filed: 07/29/23 14:25> Code(s): J18.9 - Pneumonia, unspecified organism <Brittany Jasso Student - Last Filed: 07/29/23 14:25> Status: Acute <Brittany Jasso Student - Last Filed: 07/29/23 14:25> Assessment and Plan: Patient recently hospitalized for LLL PNA on 07/13, discharged home and completed his course of Augmentin and Azithromycin He continued to have symptoms and presented [facility] on 07/24 with left-sided pleuritic chest pain, body aches, and chills. Tested positive for influenza A and was sent to the ED Chest X-ray shows worsening LLL PNA Patient was febrile on arrival with no oxygen requirement; WBC of 29.[address] showed left lower lobe airspace consolidation representing combination of pneumonia and/or atelectasis and a new area of linear consolidation of the lingula which is likely atelectasis though possible mucus plugging Blood cultures show NGTD Sputum culture preliminarily show gram positive cocci in pairs IV Levoquin (07/24-) and Vancomycin (07/24-) started Methylprednisolone started 07/25-07/27 Continued Tamiflu (end on 07/29) Pulmonology consult PO Levoquin started 07/28 PO Prednisone 50mg 07/28 Continue Guaifenesin On room air now (07/28) <Brittany Jasso, Student - Last Filed: 07/29/23 14:25> Patient recently hospitalized for LLL PNA on 07/13, discharged home and completed his course of Augmentin and Azithromycin He continued to have symptoms and presented [facility] on 07/24 with left-sided pleuritic chest pain, body aches, and chills. Tested positive for influenza A and was sent to the ED Chest X-ray shows worsening LLL PNA Patient was febrile on arrival with no oxygen requirement; WBC of 29.[address] showed left lower lobe airspace consolidation representing combination of pneumonia and/or atelectasis and a new area of linear consolidation of the lingula which is likely atelectasis though possible mucus plugging Blood cultures show NGTD Sputum culture preliminarily show gram positive cocci in pairs IV Levoquin (07/24-) and Vancomycin (07/24-) started Methylprednisolone started 07/25-07/27 Continued Tamiflu (end on 07/29) Pulmonology consult PO Levoquin started 07/28 PO Prednisone 50mg 07/28 Continue Guaifenesin On room air now (07/28) <Arvind Dejesus MD - Last Filed: 07/29/23 15:01> (2) Influenza A: Code(s): J10.1 - Influenza due to other identified influenza virus with other respiratory manifestations <Brittany Jasso, Student - Last Filed: 07/29/23 14:25> Status: Inactive <Brittany Jasso Student - Last Filed: 07/29/23 14:25> Assessment and Plan: Testing positive for influenza A on 07/24 Continue Tamiflu <Brittany Jasso Student - Last Filed: 07/29/23 14:25> Testing positive for influenza A on 07/24 Continue Tamiflu <Arvind Dejesus MD - Last Filed: 07/29/23 15:01> (3) COPD (chronic obstructive pulmonary disease): Qualifiers: COPD type: unspecified COPD Qualified Code(s): J44.9 - Chronic obstructive pulmonary disease, unspecified <Brittany Jasso, Student - Last Filed: 07/29/23 14:25> Code(s): J44.9 - Chronic obstructive pulmonary disease, unspecified <Brittany Jasso Student - Last Filed: 07/29/23 14:25> Status: Acute <Brittany Jasso Student - Last Filed: 07/29/23 14:25> Assessment and Plan: Heavy smoking history 1.5-2 packs per day approximately 30 years, has had a few years when he was off cigarettes. He is on no controller medications, has a nebulizer at home that he acquired after an ED visit in May outside the [facility] system,? says that albuterol helps at home when he cannot catch hi
[2023-07-29] MEDS: OSELTAMIVIR PHOSPHATE 75 MG CAPSULE PO (10:11)
[2023-07-29] MEDS: SIMETHICONE 125 MG CHEW TAB PO (10:11)
[2023-07-29] MEDS: PANTOPRAZOLE 40 MG TABLET PO (10:12)
[2023-07-29] MEDS: guaiFENesin 12 HR 600 MG TABCR PO (10:12)
[2023-07-29] MEDS: ENOXAPARIN 40 MG/0.4 ML SYRINGE SUB-Q (10:12)
[2023-07-29] MEDS: levoFLOXacin 750 MG TABLET PO (10:12)
--- NOTE | 2023-07-29 12:09 | HOMEO2EVAL ---
Evaluation was performed at [facility] Home Oxygen Evaluation RC: Home Oxygen (O2) Evaluation Start: 07/28/23 15:57 Freq: ONCE Status: Active Protocol: RPE Activity Type Activity Date Activity User E-sign Co-sign Detail Recorded Client Recorded Date Recorded By Document 07/29/23 11:45 [email or web address] [id number] 07/29/23 12:09 DJO Document 07/29/23 11:50 [email or web address] [id number] 07/29/23 12:09 DJO Document 07/29/23 12:00 [email or web address] [email or web address] 07/29/23 12:09 DJO 07/29/23 07/29/23 07/29/23 11:45 11:50 12:00 Home O2 Evaluation [Oxygen] -Test Phase Resting Exercise Resting -Oxygen Delivery Room Air Room Air Room Air [Pulse Oximetry] -Pulse Oximetry (90-100 %) 96 94 96 [Pulse Rate] -Pulse Rate (60-100 beats/min) 69 89 72 [Comments] -Home Oxygen Evaluation Comments No home O2 needed at this time. [Charges] -Evaluation Charges O2 Evaluation by Pulmonary
--- NOTE | 2023-07-29 12:10 | PCRCNOTE ---
Home o2 eval done, no home O2 needed at this time.
[2023-07-29 13:15] LABS: Mycoplasma IgM Antibody Titer 15 U/mL (<770)
[2023-07-29] MEDS: predniSONE 40 MG, predniSONE 10 MG 50 MG PO (13:23)
--- NOTE | 2023-07-29 14:23 | PM.DS ---
DS: Admitting Diagnosis Discharge Date 07/29/23 Admitting Diagnosis Shortness of breath DS: Discharge Diagnosis Discharge Diagnosis (1) Left lower lobe pneumonia: Qualifiers: Pneumonia type: due to unspecified organism Qualified Code(s): J18.9 - Pneumonia, unspecified organism Code(s): J18.9 - Pneumonia, unspecified organism Status: Acute (2) Influenza A: Code(s): J10.1 - Influenza due to other identified influenza virus with other respiratory manifestations Status: Inactive (3) History of tobacco abuse: Code(s): Z87.891 - Personal history of nicotine dependence Status: Acute DS: Summary Hospital Course Reason for hospitalization: 57yo male with GERD and irritable bowel syndrome who presented to the emergency department for evaluation of shortness of breath.?Please see H&P for details. Hospital Course: Patient was hospitalized with left lower lobe pneumonia on 07/14/2023. He was discharged 2 days later on Zithromax and Augmentin of which he took to completion. He was feeling better until the day before admission when he developed left-sided pleuritic pain, diffuse body aches, chills, and diarrhea. He was seen at an [facility] where he tested positive for influenza A. He was febrile and WBC count was 29.9 and CRP 8.3. Chest CT showed left lower lobe airspace consolidation representing combination of pneumonia and/or atelectasis and a new area of linear consolidation of the lingula which is likely atelectasis though possible mucus plugging. The focal linear consolidation in the lingula with associated calcifications; endobronchial lesions cannot be excluded. He was started on levofloxacin and vancomycin in the ED. Tamiflu started. Troponin negative x 2. EKG showing normal sinus rhythm. BCx no growth to date. Sputum culture no growth to date. AST/ALT were elevated to 112/165 before improving. Possibly related to viral illness. MRSA nasal swab negative and Vancomycin stopped. He was started on IV steroids. He was able to be weaned to room air. WBC still elevated but trending down. He was up ambulating in the halls (no hypoxia with walking). He overall did well and was able to be discharged home on 07/29/23 Status at Discharge Cognitive/behavioral status at discharge: stable Time Spent with Patient Time attestation: Total time spent providing and/or coordinating discharge services: 36 minutes Time spent: Greater than 30 minutes Exam Narrative: AF 97.0 104/64 72 20 96% ra Gen - NARD Chest - clear with prolonged expiratory phase except decreased BS in left base CV - RRR S1/S2 Abd - Soft, NT/ND, Positive BS Ext - No pedal edema Psych - Nml mood and affect Skin - Warm and dry DS: Data Data Completed and Pending Labs on day of discharge: Labs from last 24 hours 07/29/23 07/26/23 07/26/23 05:02 14:13 05:26 WBC 18.9 H RBC 4.08 L Hgb 13.1 L Hct 40.3 L MCV 98.8 MCH 32.1 MCHC 32.5 RDW 13.5 Plt Count 453 H MPV 9.9 Immature Gran % (Auto) 2.5 H Neut % (Auto) 88.3 H Lymph % (Auto) 5.9 L Saunders % (Auto) 3.1 Eos % (Auto) 0.0 Baso % (Auto) 0.2 Lymph # (Auto) 1.12 Saunders # (Auto) 0.6 Eos # (Auto) 0.0 Baso # (Auto) 0.0 Abs Immat Gran (auto) 0.48 H Absolute Neuts (auto) 16.6 H Absolute Nucleated RBC 0.000 Nucleated RBC % 0.0 Sodium 138 Potassium 3.8 Chloride 104 Carbon Dioxide 30 Anion Gap 4 L BUN 17 Creatinine 0.90 Estim Creat Clear Calc 87 Estimated GFR > 60 Glucose 135 H Calcium 9.3 Total Bilirubin 0.5 AST 62 H ALT 163 H Alkaline Phosphatase 82 Total Protein 7.0 Albumin 3.5 Ur L.pneumophila Ag Not detected Mycoplasma pneumon IgM 15 Urine Pneumococcal Ag Not detected Preliminary micro results at discharge 07/27/23 16:31 Sputum Culture - Preliminary Sputum 07/25/23 12:49 Blood Culture - Preliminary
--- NOTE | 2023-07-29 14:48 | PM.PNPUL ---
Progress Note: A&P Assessment and Plan (1) Pneumonia and influenza: Code(s): J11.00 - Influenza due to unidentified influenza virus with unspecified type of pneumonia Status: Acute Assessment and Plan: Was readmitted July 24 with influenza A with persistent LLL pneumonia diagnosed July 13 requiring 2 days in the hospital. He was febrile this admission and hypoxemic, no fever since July 24 when he was 38.5 C, so now 4 days without fever. He needs O2 to maintain saturation. I will add Cornet valve to help clear secretions, stop dornase alpha as this has not helped get secretions out. influenza A can be complicated by infections although this patient had a left lower lobe pneumonia prior to being diagnosed with influenza a, initial infiltrate was July 13 and is influenza a was July 24. Fever resolved, last fever was 4 days ago, improving. Could take up to 2 months for his infiltrate to completely disappear. (2) COPD (chronic obstructive pulmonary disease): Qualifiers: COPD type: unspecified COPD Qualified Code(s): J44.9 - Chronic obstructive pulmonary disease, unspecified Code(s): J44.9 - Chronic obstructive pulmonary disease, unspecified Status: Acute Assessment and Plan: Probable diagnosis. Heavy smoking history 1.5-2 packs per day approximately 30 years, has had a few years when he was off cigarettes. He is on no controller medications, has a nebulizer at home that he acquired after an ED visit in May outside the [facility] system, says that albuterol helps at home when he cannot catch his breath. Has wheezing. Will need PFTS after this episode resolves. (3) History of tobacco abuse: Code(s): Z87.891 - Personal history of nicotine dependence Status: Acute Assessment and Plan: He smoked 1.5-2 ppd, none since July 16, 2023; smoked decades; had a period of time without tobacco several years ago using Chantix; recently quit July 15; smokes, need tobacco cessation support to help quit and avoid relapse Plan OK to go home today; I discussed all this with Dr Dejesus. Continue oral Levaquin for 5 days total, finishes today. Needs to complete 5 days of oral steroids. Home oxygen study today was great, no O2 needed, stayed 94-96% on room air, did not get tachycardic. Was on 2 L yesterday Cornet vibratory valve to help expectorate secretions. He does not need to go home on Trelegy prescription. Can use the inhaler he has from the hospital stay, has a limitied amount. I want him to have management for COPD to get better after leaving hospital. Trelegy 100/62.5/4.5, stop Duoneb, start albuterol inhaler and albuterol nebulized prn. Avoid smoke, including secondhand smoke in the home environment. Tobacco cessation info for and himself. 07/25/[address] = ?Left lower lobe airspace consolidation. There is focal linear consolidation in the lingula with associated calcifications. Endobronchial lesion cannot be excluded. I told him that he will need follow up to make sure that this is not cancer. RTC 1 month; I will send message to office. When at his baseline after discharge, needs PFTS, annual screening for lung cancer, obtain vaccinations including pneumococcal and update COVID vaccination. Assisting patients with smoking cessation Action Strategies for implementation Help the patient with a quit plan Set a quit date. Ideally, the quit date should be within?2 weeks. Tell family, friends, and coworkers about quitting and request understanding and support. Anticipate challenges to planned quit attempt, particularly during the critical first few weeks. These include nicotine withdrawal symptoms. Remove tobacco products from your environment. Prior to quitting, avoid sm
--- NOTE | 2023-08-03 08:03 | PC.NURSE ---
Viral Resp Rapid is negative. Dr. Dejesus aware.
== END 2023-07-29 16:20 | disposition home or self-care (01) | DRG 195 ==
LOC: ANHED 14:15 → ANH3MEDSUR 15:17 → ANH2MED 15:37
PROVIDERS: Nurse Practitioner; Physician Assistant; Admitting Provider Internal Medicine; Emergency Provider Emergency Medicine; PCP Family Medicine; Visit Provider Internal Medicine
DX: J18.9 Pneumonia, unspecified organism (principal); J10.1 Influenza due to other identified influenza virus with other respiratory manifestations; K21.9 Gastro-esophageal reflux disease without esophagitis; K58.9 Irritable bowel syndrome, unspecified; M54.40 Lumbago with sciatica, unspecified side; J45.909 Unspecified asthma, uncomplicated; Z20.822 Contact with and (suspected) exposure to COVID-19; Z87.891 Personal history of nicotine dependence
CPT/HCPCS: 36415; 71046; 71260; 80048; 80053; 80202; 83605; 83735; 84145; 84484; 85025; 85027; 85610; 85730; 86140; 86738; 87040; 87070; 87205; 87254; 87426; 87449; 87637; 87641; 87804; 87899; 93005; 94618; 94640; 94667; 96361; 96365; 99285; A9270; J1650; J1885; J1956; J2270; J2920; J2930; J3370; J7030; J7512; Q9967

== ENCOUNTER 2023-08-04 15:52 | Emergency (ER) | payer OTHER, SELFPAY ==
--- NOTE | ~2023-08-04 | XR_ITS ---
EXAMINATION: XR chest 2V DATE: 08/04/2023 16:23 INDICATION: Chest pain. TECHNIQUE: Frontal and lateral views of the chest were obtained. COMPARISON: Chest 2 views 07/27/2023, chest CT 07/25/2023 FINDINGS: There are airspace opacities at left lung base. There is a small left pleural effusion. No pneumothorax. The heart size is normal. IMPRESSION: 1. Stable airspace opacities in left lung lower lobe, consistent with pneumonia. 2. Stable small left pleural effusion. Reviewed, dictated and finalized at location A. IMPRESSION: 1. Stable airspace opacities in left lung lower lobe, consistent with pneumonia . 2. Stable small left pleural effusion.
[2023-08-04 15:58] VITALS: BP 109/53; PULSE 72; RESP 18; TEMP 37.2; O2SAT 98
--- NOTE | 2023-08-04 16:13 | ECG_ITS ---
Measurements Intervals [place] Rate: 72 P: 29 SD: 127 QRS: 53 QRSD: 114 T: 37 QT: 401 QTc: 439 Interpretive Statements SINUS RHYTHM POSSIBLE LEFT ATRIAL ENLARGEMENT [-0.1mV P WAVE IN V1/V2] NONSPECIFIC INTRAVENTRICULAR CONDUCTION DELAY [110+ ms QRS DURATION] BORDERLINE ECG COMPARED TO ECG 07/26/2023 14:03:52 NO SIGNIFICANT CHANGES Electronically Signed On 08-05-2023 7:38:57 CDT by Cy Andino M.D.
--- NOTE | 2023-08-04 16:16 | ED.CHESTPAIN ---
HPI - Chest Pain General Chief Complaint: Chest Pain Stated Complaint: knot on left arm, chest pain Source: patient, RN notes reviewed and old records reviewed Mode of arrival: ambulatory Limitations: no limitations History of Present Illness HPI narrative: 57-year-old male patient presents to [facility] complaints chest pain that started p.m.. Per patient pain starts at the epigastric the intima chest. Patient states 10/10 last night. Patient states pain now is 5-6. Patient denies shortness of breath, cough, difficulty breathing. Patient denies dizziness. Patient also complaining pain in left wrist, patient states had IV last week while in hospital and the area that infiltrated and continues to have pain. Related Data Home Medications Medication Instructions Recorded Confirmed omeprazole 40 mg capsule,delayed 40 mg PO DAILY 07/15/23 07/25/23 release Allergies Allergy/AdvReac Type Severity Reaction Status Date / Time No Known Allergies Allergy Verified 07/25/23 16:09 Review of Systems Constitutional: Constitutional: Reports no additional constitutional complaints, Denies body ache(s), Denies chills, Denies fatigue, Denies fever(s) and Denies headache(s) Eyes: Eyes: Reports no additional eye complaints and Denies blurry vision ENT: Reports system reviewed and no additional complaints, except as documented, Denies vertigo, Denies dizziness, Denies ear discharge, Denies otalgia, Denies facial pain, Denies headache(s), Denies nasal congestion, Denies nasal discharge, Denies sinus pain, Denies sinus pressure and Denies sore throat Cardiovascular: Cardiovascular: Reports no additional cardiovascular complaints, Reports chest pain, Reports chest pain at rest, Denies rapid heart rate and Denies dyspnea Respiratory: Respiratory: Reports no additional respiratory complaints, Denies chest congestion, Denies cough, Denies pain on inspiration, Denies pain with cough and Denies dyspnea Gastrointestinal: Gastrointestinal: Reports abdominal pain, Denies diarrhea, Denies nausea and Denies vomiting Integumentary/Breasts: Skin/Breast: Denies rash Neurologic: Reports system reviewed and no additional complaints, except as documented, Denies vertigo, Denies dizziness and Denies headache(s) Endocrine: Endocrine: Denies fatigue PMFSH Past Medical History Medical History Colon cancer screening normal colonoscopy with Dr. Curiel on 03/11/2021 Gastro-esophageal reflux disease without esophagitis EGD with Dr. Curiel on 03/11/2021 with benign duodenal polyp and minimal chronic duodenitis Tobacco abuse Family History Family History Other Family history non-contributory Social History Social History Social History: Surrogate medical decision maker: Lisa Anderson, spouse. Code status: Full code. Smoking packs per day: 2 Smoking cigarettes per day: 40.0 Years smoked: 40 Smoking pack-years: 80.00 Smoking status: Former smoker Tobacco type: cigarettes Second hand tobacco smoke exposure: Yes Smoking end date: 07/13/23 Alcohol intake: current Drinks per week: 3 Substance use: current Substance use type: marijuana Last use: t-2 Do You Feel Safe in your Home?: Yes Lack of Transportation: No Lack of Food: Never True Current Housing: I Have Housing Concerned About Future Housing: No Difficulty Paying Gas/Electric Bills: No Difficulty Paying for Meds: No Currently Unemployed: No Education: Associate Degree Difficulty w/ Childcare or Family Care: No Spiritual care concerns: No Comments At the time of my signature, I reviewed and agree with the nursing past medical, surgical, social, and family history. There is no relevant family history pertinent to the patient complaint. Exam Const: General: cooperati
== END 2023-08-04 16:35 | disposition left against medical advice (07) ==
PROVIDERS: Emergency Provider Registered Nurse; PCP Family Medicine
DX: R07.9 Chest pain, unspecified (principal); J10.00 Influenza due to other identified influenza virus with unspecified type of pneumonia; Z87.891 Personal history of nicotine dependence; K21.9 Gastro-esophageal reflux disease without esophagitis
CPT/HCPCS: 71046; 93005; 99213; G0463

== ENCOUNTER 2023-10-28 13:48 | Emergency (ER) | payer OTHER, SELFPAY ==
[2023-10-28 13:58] VITALS: BP 115/69; PULSE 87; RESP 18; TEMP 37.4; O2SAT 95
[2023-10-28 13:59] VITALS: BP 115/69; PULSE 87; RESP 18; TEMP 37.4; O2SAT 95
--- NOTE | 2023-10-28 14:18 | ED.URI ---
HPI - URI/Sore Throat General Chief Complaint: Upper Respiratory Infection Stated Complaint: Congestion and Cough Time Seen by Provider: 10/28/23 14:12 Source: patient, RN notes reviewed and old records reviewed Mode of arrival: ambulatory Limitations: no limitations History of Present Illness HPI Narrative: 58-year-old male who presents to [facility] with complaints of feeling feverish, having productive cough, headache, nasal congestion, and some diarrhea since yesterday.Patient reports some body aches and no appetite either. He states that he has been taking DayQuil and NyQuil for his symptoms.Patient reports that he had a tooth pulled last week and did not receive antibiotics. MD elicited complaint: fever, cough, sore throat, rhinorrhea, nasal congestion and other (headache, diarrhea) Onset (ago): day(s) (runny nose on Tuesday afternoon with other symptoms am) Severity: moderate Description of mucous: other (White ) Treatments prior to arrival: other (DayQuil and NyQuil) Related Data Home Medications Medication Instructions Recorded Confirmed omeprazole 40 mg capsule,delayed 40 mg PO DAILY 07/15/23 07/25/23 release Allergies Allergy/AdvReac Type Severity Reaction Status Date / Time No Known Allergies Allergy Verified 10/28/23 13:59 Review of Systems Review of Systems: CONSTITUTIONAL: Reports malaise, chills, sweats, or fever. EYES: Denies visual changes, redness, or discharge. ENT: Reports rhinorrhea, congestion, sinus pain, no otalgia and no sore throat. CARDIOVASCULAR: Denies chest pain, palpitations, or edema. RESPIRATORY: Reports cough.? Denies dyspnea. GASTROINTESTINAL: Denies abdominal pain, nausea, vomiting, positive for episodes of diarrhea, no appetitie SKIN: Denies rash or itching. MUSCULOSKELETAL:reports myalgia. NEUROLOGIC: reports headache. All systems reviewed & are unremarkable except as noted in HPI and below PMFSH Past Medical History Medical History (Updated 10/30/23 @ 12:53 by Halima Waters NP) Colon cancer screening normal colonoscopy with Dr. Curiel on 03/11/2021 Gastro-esophageal reflux disease without esophagitis EGD with Dr. Curiel on 03/11/2021 with benign duodenal polyp and minimal chronic duodenitis Pneumonia Tobacco abuse Family History Family History Other Family history non-contributory Social History Social History Social History: Surrogate medical decision maker: Lisa Anderson, spouse. Code status: Full code. Smoking packs per day: 2 Smoking cigarettes per day: 40.0 Years smoked: 40 Smoking pack-years: 80.00 Smoking status: Former smoker Tobacco type: cigarettes Second hand tobacco smoke exposure: Yes Smoking end date: 07/13/23 Alcohol intake: current Drinks per week: 3 Substance use: current Substance use type: marijuana Last use: t-2 Do You Feel Safe in your Home?: Yes Lack of Transportation: No Lack of Food: Never True Current Housing: I Have Housing Concerned About Future Housing: No Difficulty Paying Gas/Electric Bills: No Difficulty Paying for Meds: No Currently Unemployed: No Education: Associate Degree Difficulty w/ Childcare or Family Care: No Spiritual care concerns: No Comments At time of signature, agree with nursing past medical, surgical, social and family history. There is no relevant family history pertinent to the presenting complaint Exam Narrative: GENERAL: Well-appearing, well-nourished, and in no acute distress. HEAD: Normocephalic EYES: PERRLA, conjunctivae clear ENT: Nares clear, turbinates edematous and erythematous, clear discharge. Mucous membranes moist. TM pearly camilo with dull light reflex bilaterally; no tragal tenderness. Oropharynx erythematous without lesions. Tonsils not enlarged and without exudate, no drooling,
== END 2023-10-28 14:46 | disposition home or self-care (01) ==
PROVIDERS: Emergency Provider Registered Nurse
DX: J10.1 Influenza due to other identified influenza virus with other respiratory manifestations (principal); R05.9 Cough, unspecified; Z20.822 Contact with and (suspected) exposure to COVID-19; K21.9 Gastro-esophageal reflux disease without esophagitis
CPT/HCPCS: 87426; 87804; 99213; G0463

== ENCOUNTER 2023-11-04 08:05 | Emergency (ER) | payer OTHER, SELFPAY ==
--- NOTE | 2023-11-04 08:09 | ED.EYEPROB ---
HPI - Eye Problem General Stated complaint: pink eye and congestion Source: patient and RN notes reviewed Mode of arrival: ambulatory Limitations: no limitations Related Data Home Medications Medication Instructions Recorded Confirmed omeprazole 40 mg capsule,delayed 40 mg PO DAILY 07/15/23 07/25/23 release Allergies Allergy/AdvReac Type Severity Reaction Status Date / Time No Known Allergies Allergy Verified 11/04/23 08:15 Review of Systems Review of Systems: CONSTITUTIONAL: Denies malaise, chills, sweats, or fever. EYES: Denies visual changes. Reports redness, irritation, discharge. ENT: Denies rhinorrhea, congestion, sinus pain, otalgia or sore throat. SKIN: Denies rash or itching. NEUROLOGIC: Denies numbness, weakness, or headache. PSYCHIATRIC: Denies anxiety or depression. All systems reviewed & are unremarkable except as noted in HPI and below PMFSH Past Medical History Medical History (Updated 10/31/23 @ 00:01 by Benoit Villegas) Colon cancer screening normal colonoscopy with Dr. Curiel on 03/11/2021 Gastro-esophageal reflux disease without esophagitis EGD with Dr. Curiel on 03/11/2021 with benign duodenal polyp and minimal chronic duodenitis Pneumonia Tobacco abuse Family History Family History Other Family history non-contributory Social History Social History Social History: Surrogate medical decision maker: Lisa Anderson, spouse. Code status: Full code. Smoking packs per day: 2 Smoking cigarettes per day: 40.0 Years smoked: 40 Smoking pack-years: 80.00 Smoking status: Former smoker Tobacco type: cigarettes Second hand tobacco smoke exposure: Yes Smoking end date: 07/13/23 Alcohol intake: current Drinks per week: 3 Substance use: current Substance use type: marijuana Last use: t-2 Do You Feel Safe in your Home?: Yes Lack of Transportation: No Lack of Food: Never True Current Housing: I Have Housing Concerned About Future Housing: No Difficulty Paying Gas/Electric Bills: No Difficulty Paying for Meds: No Currently Unemployed: No Education: Associate Degree Difficulty w/ Childcare or Family Care: No Spiritual care concerns: No Comments At time of signature, agree with nursing past medical, surgical, social and family history. There is no relevant family history pertinent to the presenting complaint Exam Narrative: GENERAL: Well-appearing, well-nourished, and in no acute distress. HEAD: Normocephalic, atraumatic. EYES: PERRLA, sclera clear, and EOMI. No nystagmus. Bilateral conjunctivae injected. Upper and lower eyelid unremarkable, no periorbital edema noted ENT: Nares clear, turbinates pink, no rhinorrhea or epistaxis. Mucous membranes moist. TM pearly camilo with sharp light reflex bilaterally; no tragal tenderness. NECK: Supple. CHEST: No respiratory distress. Speaks in full sentences. HEART: Regular rate and rhythm. SKIN: Warm, dry, no visible rash. NEURO: Alert and oriented x3. PSYCH: Normal mood and affect Course Course Emergency Course: Patient is aware of diagnosis, understands and agrees to treatment plan. Anticipatory guidance given. Patient agrees to follow-up as directed and is aware of reasons to seek care at the emergency department. Portions of this record may have been created with voice recognition software Level of Care: Express Care Visit Vital Signs Vital signs: Reviewed. MDM - Eye Problem MDM Narrative Medical decision making narrative: Consideration of the following conditions may be warranted for the presenting problem, they are not final diagnoses: Bacterial conjunctivitis, allergic conjunctivitis, viral conjunctivitis, foreign body, blepharitis, chalazion, hordeolum, corneal abrasion, preseptal cellulitis, orbital cellulitis. No evidence of proptosis, ophthalmopleg
[2023-11-04 08:15] VITALS: BP 124/76; PULSE 71; RESP 16; TEMP 36.5; O2SAT 98
--- NOTE | 2023-11-04 08:20 | ED.URI ---
HPI - URI/Sore Throat General Chief Complaint: Eye Problems Stated Complaint: pink eye and congestion Time Seen by Provider: 11/04/23 08:20 Source: patient and RN notes reviewed Mode of arrival: ambulatory Limitations: no limitations History of Present Illness HPI Narrative: 58-year-old male presents with concern of for 2 week history of productive cough, nasal drainage, congestion, pain. Reports green nasal congestion. Reports he woke up this morning with his right eye matted shut and a sore throat. He reports he was diagnosed with influenza a last week and he took prednisone. He reports he has been taking DayQuil and NyQuil MD elicited complaint: cough and sore throat Related Data Home Medications Medication Instructions Recorded Confirmed omeprazole 40 mg capsule,delayed 40 mg PO DAILY 07/15/23 07/25/23 release Allergies Allergy/AdvReac Type Severity Reaction Status Date / Time No Known Allergies Allergy Verified 11/04/23 08:15 Review of Systems Review of Systems: CONSTITUTIONAL: Denies malaise, chills, sweats, or fever. EYES: Denies visual changes, redness. Reports right eye crustiness ENT: Reports rhinorrhea, congestion, sinus pain, and sore throat. CARDIOVASCULAR: Denies chest pain, palpitations, or edema. RESPIRATORY: Reports productive cough. Denies dyspnea. GASTROINTESTINAL: Denies abdominal pain, nausea, vomiting, diarrhea SKIN: Denies rash or itching. MUSCULOSKELETAL: Denies myalgia. NEUROLOGIC: Denies headache. All systems reviewed & are unremarkable except as noted in HPI and below PMFSH Past Medical History Medical History (Updated 11/04/23 @ 08:35 by Deedee Lord NP) Colon cancer screening normal colonoscopy with Dr. Curiel on 03/11/2021 Gastro-esophageal reflux disease without esophagitis EGD with Dr. Curiel on 03/11/2021 with benign duodenal polyp and minimal chronic duodenitis Pneumonia Tobacco abuse Family History Family History Other Family history non-contributory Social History Social History Social History: Surrogate medical decision maker: Lisa Songy, spouse. Code status: Full code. Smoking packs per day: 2 Smoking cigarettes per day: 40.0 Years smoked: 40 Smoking pack-years: 80.00 Smoking status: Former smoker Tobacco type: cigarettes Second hand tobacco smoke exposure: Yes Smoking end date: 07/13/23 Alcohol intake: current Drinks per week: 3 Substance use: current Substance use type: marijuana Last use: t-2 Do You Feel Safe in your Home?: Yes Lack of Transportation: No Lack of Food: Never True Current Housing: I Have Housing Concerned About Future Housing: No Difficulty Paying Gas/Electric Bills: No Difficulty Paying for Meds: No Currently Unemployed: No Education: Associate Degree Difficulty w/ Childcare or Family Care: No Spiritual care concerns: No Comments At time of signature, agree with nursing past medical, surgical, social and family history. There is no relevant family history pertinent to the presenting complaint Exam Narrative: GENERAL: Well-appearing, well-nourished, and in no acute distress. HEAD: Normocephalic EYES: PERRLA, conjunctivae clear ENT: Nares clear, turbinates edematous and erythematous. Mucous membranes moist. TM pearly camilo with dull light reflex bilaterally; no tragal tenderness. Oropharynx not erythematous without lesions. Tonsils not enlarged and without exudate, no drooling, no hoarseness, no trismus, uvula midline. NECK: Supple. No lymphadenopathy CHEST: Scattered wheeze, otherwise Clear to auscultation, breath sounds equal. No rhonchi, rales, or stridor. No respiratory distress, speaks in full sentences. HEART: Regular rate and rhythm. No murmur heard. SKIN: Warm, dry, no rash. NEURO: Alert and oriented x3. PSYCH: Normal mood and affect Course
== END 2023-11-04 08:42 | disposition home or self-care (01) ==
PROVIDERS: Emergency Provider Nurse Practitioner; Referring Provider Family Medicine
DX: J32.9 Chronic sinusitis, unspecified (principal); J40 Bronchitis, not specified as acute or chronic; Z87.891 Personal history of nicotine dependence; F12.90 Cannabis use, unspecified, uncomplicated; K21.9 Gastro-esophageal reflux disease without esophagitis
CPT/HCPCS: 99213; G0463

== ENCOUNTER 2024-03-19 12:47 | Outpatient (CLI) | payer OTHER, SELFPAY ==
--- NOTE | ~2024-03-19 | CT_ITS ---
EXAMINATION:CT lung screening DATE: 03/19/2024 13:16 INDICATION: Nicotine dependence, cigarettes, uncomplicated. TECHNIQUE: Computed tomography (CT) of the chest was performed without intravenous contrast. Automate d exposure control and iterative reconstruction technique were employed. The dose-length product (DLP ) was 178.88 mGy-cm. COMPARISON: Chest CT 07/25/2023, 07/14/2023, 02/27/2023 FINDINGS: There is mild emphysema. There is mild bronchiectasis in inferior left lung. Calcified bila teral lung nodules are consistent with old granulomatous disease. There are peripheral airspace opaci ties in left lower lobe and lingula, consistent with rounded atelectasis. There is a chronic small le ft pleural effusion with pleural thickening with decrease in size from 07/25/23, likely an exudate. Th e heart size is normal. There are coronary artery calcifications. No pericardial effusion. There are bridging endplate osteophytes at multiple levels in the spine, consistent with diffuse idiopathic ske letal hyperostosis (DISH). There is mild thoracic spondylosis. IMPRESSION: 1. Lung-RADS category 2S: Benign appearance or behavior. Continue annual screening with noncontrast l ow-dose chest CT in 12 months. 2. Chronic small left pleural effusion with pleural thickening with decrease in size from 07/25/2023, likely an exudate. Reviewed, dictated and finalized at location A. ICAL SERVICES MANAGER IMPRESSION: 1. Lung-RADS category 2S: Benign appearance or behavior. Continue annual screen ing with noncontrast low-dose chest CT in 12 months. 2. Chronic small left pleural effusion with pleural thickening with decrease in size from 07/25/2023, likely an exudate.
== END 2024-03-19 12:48 | disposition home or self-care (01) ==
PROVIDERS: PCP Student in an Organized Health Care Education/Training Program; Visit Provider Student in an Organized Health Care Education/Training Program
DX: Z12.2 Encounter for screening for malignant neoplasm of respiratory organs (principal); J90 Pleural effusion, not elsewhere classified; F17.210 Nicotine dependence, cigarettes, uncomplicated
CPT/HCPCS: 71271

== ENCOUNTER 2024-03-23 14:42 | Outpatient (CLI) | payer OTHER, SELFPAY ==
--- NOTE | ~2024-03-23 | CT_ITS ---
EXAMINATION: CTA neck DATE: 03/23/2024 15:43 INDICATION: Stenosis of bilateral carotid arteries. TECHNIQUE: Computed tomographic angiography (CTA) of the neck was performed with 100 mL Omnipaque-350 intravenous contrast. Automated exposure control and iterative reconstruction technique were employe d. The dose-length product was 556.63 mGy-cm. Maximum intensity projection 3D-reconstructions were cr eated by the technologist on a separate workstation. COMPARISON: None. FINDINGS: There is mild emphysema. There are no pathologically enlarged lymph nodes. The vertebral ar teries are codominant. There is no significant stenosis of the vertebral arteries. There is plaque in the proximal internal carotid arteries. There is 0% stenosis of the proximal right internal carotid artery relative to normal distal artery lumen diameter (NASCET criteria). There is 0% stenosis of the proximal left internal carotid artery relative to normal distal artery lumen diameter. There is mode rate stenosis of distal left common carotid artery. There is moderate cervical spondylosis. IMPRESSION: 1. 0% stenosis of the proximal internal carotid arteries relative to normal distal artery lumen diame ters (NASCET criteria). 2. Moderate stenosis of distal left common carotid artery. Reviewed, dictated and finalized at location A. REPAIR INSPECTOR IMPRESSION: 1. 0% stenosis of the proximal internal carotid arteries relative to normal dis eleonora artery lumen diameters (NASCET criteria). 2. Moderate stenosis of distal left common carotid artery.
== END 2024-03-23 14:43 | disposition home or self-care (01) ==
LOC: MICIMG 14:42
PROVIDERS: PCP Student in an Organized Health Care Education/Training Program; Visit Provider Surgery Vascular Surgery
DX: I65.22 Occlusion and stenosis of left carotid artery (principal)
CPT/HCPCS: 70498; Q9967

== ENCOUNTER 2024-11-29 15:38 | Outpatient (CLI) | payer BC, SELFPAY ==
--- NOTE | ~2024-11-29 | XR_ITS ---
AP view of the pelvis and AP and lateral views of the right hip Clinical history: Pain Findings: No acute fracture or dislocation is seen. Osseous alignment is anatomic. There is minimal d egenerative change of both hip joints. Soft tissues are unremarkable. Impression: Minimal degenerative change of both hip joints. Reviewed, dictated and finalized at location . Impression: Minimal degenerative change of both hip joints.
== END 2024-11-29 15:39 | disposition home or self-care (01) ==
LOC: MICIMG 15:42
PROVIDERS: PCP Student in an Organized Health Care Education/Training Program; Visit Provider Student in an Organized Health Care Education/Training Program
DX: M25.561 Pain in right knee (principal); G89.29 Other chronic pain; M16.11 Unilateral primary osteoarthritis, right hip
CPT/HCPCS: 73502; 73562